=== PATIENT | female | born 1945 | race Two or more races ===

== ENCOUNTER 2021-06-23 10:07 | Inpatient (IN) | payer MEDICARE, OTHER ==
[~2021-06-23] VITALS: Ht 154.9 cm; Wt 64.9 kg
--- NOTE | 2021-06-23 10:30 | NUR ---
ROBERTA ULRICH [facility],BLOOD NOTED IN HER STOOL THIS MORNING. THE PATIENT IS ALERT AND ORIENTED X3 WITH EPISODES OF FORGETFULLNESS. DENIES PAIN. IN ROOM AIR AND DENIES SOB. RESPIRATION REGULAR AND UNLABORED. ATTACHED TO THE MONITOR. WARM BLANKET PROVIDED FOR COMFORT. WILL CONTINUE TO MONITOR THE PATIENT.
--- NOTE | 2021-06-23 11:20 | NUR ---
PT WAS BROUGHT TO CT DEPT VIA STRETCHER.
[2021-06-23] MEDS ORDERED: PANTOPRAZOLE 40 MG VIAL ONE ×2 (11:24→16:46)
[2021-06-23] MEDS ORDERED: ONDANSETRON HCL/PF 4 MG/2 ML VIAL ONE (11:24)
[2021-06-23] MEDS ORDERED: MORPHINE SULFATE INJ 2 MG/ML DISP.SYRIN ONE (11:25)
[2021-06-23] MEDS ORDERED: IV NS 0.9% 500 ML BAG IV ONE (11:30)
[2021-06-23] MEDS ORDERED: ONDANSETRON HCL/PF 4 MG/2 ML VIAL IVP ONE (11:30)
[2021-06-23] MEDS ORDERED: MORPHINE SULFATE INJ 2 MG/ML DISP.SYRIN IV ONE (11:30)
[2021-06-23] MEDS ORDERED: PANTOPRAZOLE 40 MG VIAL IV ONE (11:30)
[2021-06-23 11:36] LABS: ALANINE AMINOTRANSFERASE 16 U/L (12-78); ALBUMIN 2.3 g/dL (3.4-5.0); ALKALINE PHOSPHATASE 180 U/L (46-116); ASPARTATE AMINOTRANSFERASE 14 U/L (15-37); BILIRUBIN,DIRECT 0.1 mg/dL (0.0-0.2); BILIRUBIN,TOTAL 0.4 mg/dL (0.2-1.0); CALCIUM, SERUM 8.4 mg/dL (8.5-10.1); CARBON DIOXIDE 23 mmol/L (21-32); CHLORIDE 102 mmol/L (98-107); CREATININE 0.5 mg/dL (0.6-1.3); GLUCOSE 133 mg/dL (74-106); LIPASE 27 U/L (73-393); POTASSIUM 3.9 mmol/L (3.5-5.1); SODIUM SERUM 134 mmol/L (136-145); TOTAL PROTEIN, SERUM 7.5 g/dL (6.4-8.2); UREA NITROGEN, BLOOD 17 mg/dL (7-18)
--- NOTE | 2021-06-23 11:45 | NUR ---
IV CANNULA G22 INSERTED ON LEFT FA. IVF ATTACHED. LINE IS PATENT, NO SWELLING NOTED.
[2021-06-23 11:50] LABS: BASOPHILS % (AUTO) 0.3 % (0.0-2.0); EOSINOPHILS % (AUTO) 0.7 % (0.0-6.0); HEMATOCRIT 30 % (33-45); HEMOGLOBIN 8.9 g/dL (11.5-14.8); LYMPHOCYTES # (AUTO) 1.9 K/uL (0.8-4.8); LYMPHOCYTES % (AUTO) 13.5 % (20.0-44.0); MEAN CORPUSCULAR HGB CONC 30 g/dl (31.0-36.0); MEAN CORPUSCULAR VOLUME 69 fL (82-100); MONOCYTES # (AUTO) 1.1 K/uL (0.1-1.30); MONOCYTES % (AUTO) 7.8 % (2.0-12.0); NEUTROPHILS # (AUTO) 11.1 K/uL (1.8-8.9); NEUTROPHILS % (AUTO) 77.7 % (43.0-81.0); PLATELET COUNT (AUTO) 369 K/uL (150-450); RED BLOOD CELL COUNT(AUTO) 4.32 MIL/uL (4.0-5.2); WHITE BLOOD COUNT (AUTO) 14.2 K/uL (4.3-11.0)
[2021-06-23] MEDS ORDERED: PIPERACILLIN /TAZOBACTAM 3.375 G VIAL IV ONE (12:15)
[2021-06-23] MEDS ORDERED: VIT1CAPS44 PO (12:18)
[2021-06-23] MEDS ORDERED: MULT-439 PO (12:18)
[2021-06-23] MEDS ORDERED: LEVO25TA7 PO (12:18)
[2021-06-23] MEDS ORDERED: DIVA500T2 PO (12:18)
[2021-06-23] MEDS ORDERED: ASCO500C17 PO (12:18)
[2021-06-23] MEDS ORDERED: MIRT-121 PO (12:18)
[2021-06-23] MEDS ORDERED: DONE5TAB7 PO (12:18)
[2021-06-23] MEDS ORDERED: LEVE1000 PO (12:18)
[2021-06-23] MEDS ORDERED: CHOL200013 PO (12:18)
[2021-06-23] MEDS ORDERED: ASPI-1169 PO (12:18)
[2021-06-23] MEDS ORDERED: AZITHROMYCIN 500 MG in IV D5W 250 ML IV ONE (12:30)
[2021-06-23] MEDS ORDERED: CEFTAZIDIME 1 G in IV D5W 50 ML IV ONE (12:30)
[2021-06-23] MEDS ORDERED: PIPERACILLIN /TAZOBACTAM 3.375 G in IV D5W 50 ML IV ONE (12:30)
--- NOTE | 2021-06-23 13:13 | NUR ---
SPOKE WITH DR. SALAMANCA [facility]
--- NOTE | 2021-06-23 13:14 | NUR ---
[facility] CALLED CLINICAL TRIALS MANAGER PAGED.
--- NOTE | 2021-06-23 13:15 | NUR ---
MOVE SHEET SUBMITTED.
--- NOTE | 2021-06-23 13:29 | NUR ---
COVID SWAB DONE AND SENT TO LAB
[2021-06-23] MEDS ORDERED: hydrALAZINE HCL IV 20 MG VIAL IV PRN (14:00)
[2021-06-23] MEDS ORDERED: Z GUARD REMEDY 4 OZ OINT TP PRN (14:00)
[2021-06-23] MEDS ORDERED: MAG HYDROX/AL HYDROX/SIMETH 30 ML UDC PO PRN (14:00)
[2021-06-23] MEDS ORDERED: ONDANSETRON HCL/PF 4 MG/2 ML VIAL IVP PRN (14:00)
[2021-06-23] MEDS: IV NS 0.9% 1,000 ML IV SCH ×2 (14:21→16:50)
[2021-06-23 14:29] LABS: HEMOGLOBIN 8.7 g/dL (11.5-14.8)
[2021-06-23] MEDS ORDERED: DIVALPROEX SODIUM 500 MG TABLET.DR PO ONE (16:47)
[2021-06-23] MEDS: PANTOPRAZOLE 40 MG VIAL IV SCH (16:50)
[2021-06-23] MEDS: DIVALPROEX SODIUM 500 MG TABLET.DR PO SCH (16:53)
[2021-06-23] MEDS ORDERED: MORPHINE SULFATE INJ 4 MG/ML DISP.SYRIN ONE (16:59)
[2021-06-23] MEDS: MORPHINE SULFATE INJ 2 MG/ML DISP.SYRIN IV PRN (17:02)
--- NOTE | 2021-06-23 17:13 | NUR ---
SEEN BY DR MARES AT BEDSIDE.
--- NOTE | 2021-06-23 19:04 | NUR ---
GOT BED 321-2
--- NOTE | 2021-06-23 19:55 | NUR ---
REPORT GIVEN TO NOEMÍ JULY.
[2021-06-23 20:06] VITALS: BP 112/65
--- NOTE | 2021-06-23 20:09 | NUR ---
transferred under acls
[2021-06-23 20:10] LABS: FERRITIN 20 ng/mL (8-388)
[2021-06-23 20:49] LABS: IRON, SERUM 120 ug/dl (50-175); TOTAL IRON BINDING CAPACITY 250 ug/dl (250-450)
--- NOTE | 2021-06-23 21:00 | NUR ---
MS ORDNANCE TRUCK INSTALLATION MECHANIC NOTES RECEIVED PT FROM ED VIA [facility] AT 2006, NON-AMBULATORY. A/O X2-3 WITH DISORGANIZED THINKING. PT SAID SHE [place]/ DAUGHTER AND THAT SOMEONE PUT OIL ON THE FLOOR SO THAT HER DAUGHTER WILL SLIP. NO SOB OR NOTED. C/O PAIN 9/10 ON LEFT LEG. PT SAID SHE HAS A FRACTURE ON HER LLE AND THE DOCTOR SAID IT WILL BE PLACED IN A CAST. HAS LEFT FOREARM IV ACCESS #22G. NO S/S OF INFILTRATION NOTED. HAD BM X1, SOFT AND FROTHY. NO BLOOD NOTED. SAFETY PRECAUTIONS IN PLACE. ALL BELONGINGS ACCOUNTED FOR. WILL CONTINUE PLAN OF CARE.
[2021-06-23] MEDS: LEVETIRACETAM (250 MG) 250 MG TABLET PO SCH (21:35)
[2021-06-23] MEDS: DONEPEZIL 5 MG TABLET PO SCH (21:35)
[2021-06-23] MEDS: MIRTAZAPINE 15 MG TABLET PO SCH (21:35)
[2021-06-23] MEDS: ACETAMINOPHEN 325 MG TABLET PO PRN (21:45)
--- NOTE | 2021-06-23 22:42 | NUR ---
MS RN NOTES PT IV LINE WAS PULLED OUT WHILE TRANSFERRING TO BED. ATTEMPTED TO RE-INSERT X3, UNSUCCESSFUL. NOTIFIED CN.
--- NOTE | 2021-06-24 00:10 | NUR ---
MS RN NOTES RN SUP SUCCESSFUL IN RE-INSERTING PIV. ADVISED RN TO ORDER A MIDLINE SINCE PT IS A HARD-STICK.
[2021-06-24] MEDS: IV NS 0.9% 1,000 ML IV SCH ×2 (00:13→18:07)
[2021-06-24] MEDS: CEFEPIME 2 GM in IV D5W 100 ML IV SCH ×3 (00:23→23:58)
[2021-06-24] MEDS: MORPHINE SULFATE INJ 2 MG/ML DISP.SYRIN IV PRN ×2 (00:50→06:02)
--- NOTE | 2021-06-24 00:50 | NUR ---
MS RN NOTES PT C/O PAIN 9/10 ON HER LEFT LEG AND ABDOMEN. ADMINISTER PRN MORPHINE SO4. TOLERATED WELL.
[2021-06-24 01:57] LABS: HEMOGLOBIN 7.6 g/dL (11.5-14.8)
[2021-06-24 06:04] LABS: ALANINE AMINOTRANSFERASE 12 U/L (12-78); ALBUMIN 1.9 g/dL (3.4-5.0); ALKALINE PHOSPHATASE 139 U/L (46-116); ASPARTATE AMINOTRANSFERASE 10 U/L (15-37); BILIRUBIN,TOTAL 0.1 mg/dL (0.2-1.0); CALCIUM, SERUM 7.8 mg/dL (8.5-10.1); CARBON DIOXIDE 24 mmol/L (21-32); CHLORIDE 105 mmol/L (98-107); CREATININE 0.5 mg/dL (0.6-1.3); GLUCOSE 83 mg/dL (74-106); MAGNESIUM 1.8 mg/dL (1.8-2.4); PHOSPHORUS 3.1 mg/dL (2.5-4.9); POTASSIUM 3.9 mmol/L (3.5-5.1); SODIUM SERUM 137 mmol/L (136-145); TOTAL PROTEIN, SERUM 6.3 g/dL (6.4-8.2); UREA NITROGEN, BLOOD 16 mg/dL (7-18)
[2021-06-24 06:17] LABS: BASOPHILS # (AUTO) 0.1 K/uL (0.0-0.2); BASOPHILS % (AUTO) 0.5 % (0.0-2.0); EOSINOPHILS % (AUTO) 7.2 % (0.0-6.0); HEMATOCRIT 23 % (33-45); LYMPHOCYTES # (AUTO) 2.3 K/uL (0.8-4.8); LYMPHOCYTES % (AUTO) 15.7 % (20.0-44.0); MEAN CORPUSCULAR HGB CONC 30 g/dl (31.0-36.0); MEAN CORPUSCULAR VOLUME 69 fL (82-100); MONOCYTES # (AUTO) 1.1 K/uL (0.1-1.30); MONOCYTES % (AUTO) 7.5 % (2.0-12.0); NEUTROPHILS # (AUTO) 10.2 K/uL (1.8-8.9); NEUTROPHILS % (AUTO) 69.1 % (43.0-81.0); PLATELET COUNT (AUTO) 317 K/uL (150-450); RED BLOOD CELL COUNT(AUTO) 3.35 MIL/uL (4.0-5.2); WHITE BLOOD COUNT (AUTO) 14.7 K/uL (4.3-11.0)
--- NOTE | 2021-06-24 07:00 | NUR ---
MS RN CLOSING NOTES PT LYING IN BED ASLEEP. EASY TO AROUSE. A/O X2-3 WITH PERIODS OF CONFUSION. BREATHING EVEN AND NON-LABORED ON ROOM AIR. NOT IN APPARENT DISTRESS. ABDOMEN SOFT AND NON-TENDER. C/O NON-TOLERABLE BILATERAL FEET PAIN. PRN MORPHINE SO4 ADMINISTERED. HAS LEFT WRIST IV ACCESS #24G WITH NS RUNNING AT 75 ML/HR. PATENT, INTACT AND FLUSHING. MIDLINE INSERTION ORDERED PER RN MERCANTILE AGENT. BM X2, BLOOD-TINGED, LIQUID AND MUCOID STOOL NOTED. ALL NEEDS ATTENDED. KEPT DRY AND COMFORTABLE. SAFETY PRECAUTIONS IN PLACE: BED LOW AND LOCKED, SIDE RAILS UP X3, CALL LIGHT WITHIN REACH.
--- NOTE | 2021-06-24 07:15 | NUR ---
MS RN OPENING NOTES PATIENT IS SLEEPING IN BED, EASY TO AROUSE. BREATHING EVEN AND NON-LABORED ON ROOM AIR. NOT IN APPARENT DISTRESS. IV IS IN HER LEFT WRIST IV ACCESS #24G WITH NS RUNNING AT 75 ML/HR. PATENT, INTACT AND FLUSHING. SAFETY PRECAUTIONS IN PLACE: BED LOW AND LOCKED, SIDE RAILS UP X3, CALL LIGHT WITHIN REACH. WILL CONTINUE TO MONITOR FOR DONNA
[2021-06-24 07:50] LABS: HEMOGLOBIN 6.9 g/dL (11.5-14.8)
[2021-06-24 07:51] LABS: HEMOGLOBIN 6.9 g/dL (11.5-14.8)
[2021-06-24] MEDS: ASPIRIN 81 MG TAB.CHEW PO SCH (08:47)
[2021-06-24] MEDS: DIVALPROEX SODIUM 500 MG TABLET.DR PO SCH ×2 (08:49→17:38)
[2021-06-24] MEDS: ASCORBIC ACID 500 MG TABLET PO SCH (08:49)
[2021-06-24] MEDS: MULTIVIT W/MINERALS 1 TAB TABLET PO SCH (08:50)
[2021-06-24] MEDS: LEVOTHYROXINE SODIUM 25 MCG TABLET PO SCH (08:50)
[2021-06-24] MEDS: LEVETIRACETAM (250 MG) 250 MG TABLET PO SCH ×2 (08:50→22:48)
[2021-06-24] MEDS: CHOLECALCIFEROL 1,000 UNIT TABLET (VIT D3) PO SCH (08:50)
[2021-06-24] MEDS ORDERED: Medication Not On Formulary EA (Vit C/E/Zn/Coppr/Lutein/Zeaxan (Preservision Areds 2 Sof PO SCH (09:00)
[2021-06-24] MEDS: PANTOPRAZOLE 40 MG VIAL IV SCH ×2 (09:56→17:38)
--- NOTE | 2021-06-24 11:11 | NUR ---
RN MS NOTES PT IN BED, RESTING, NO COMPLAINT AT THIS TIME, MIDLINE INSERTED BY IV NURSE, TOLERATED WELL, SEEN AND EXAMINED BY DR. GUARDADO, PT REFUSED CT SCAN OF ABD AND PELVIS, MD AWARE.
--- NOTE | 2021-06-24 14:05 | NUR ---
RN MS NOTES CALLED BLOOD BANK TO FOLLOW UP PRBC, SPOKE WITH JUWAN, STATED THAT BLOOD IS NOT AVAILABLE YET AND PT IS TYPE O AND SHE REQUESTED IT STAT.
[2021-06-24] MEDS: SOD FERRIC GLUC 125 MG in IV NS 0.9% 100 ML IV SCH (14:17)
--- NOTE | 2021-06-24 19:30 | NUR ---
RN MS NOTES PT IN BED, RESTING, NO COMPLAINT OF PAIN, NOT IN DISTRESS, NO EPISODE OF BLOODY STOOL DURING THE SHIFT, VITALS TAKEN, BLOOD READY FOR TRANSFUSION AT THE BLOOD BANK, ENDORSED TO RISK ASSESSMENT ANALYST NURSE FOR CONTINUITY OF CARE.
[2021-06-24 20:00] VITALS: BP 74/39
[2021-06-24 21:05] VITALS: BP 82/43
[2021-06-24 21:07] VITALS: BP 82/43
--- NOTE | 2021-06-24 21:09 | NUR ---
MS/TELE/RN PRBC UNIT #1 STARTED. WILL MONITOR PER PROTOCOL.
[2021-06-24 21:25] VITALS: BP 73/31
[2021-06-24] MEDS ORDERED: IV NS 0.9% 500 ML IV ONE (22:30)
--- NOTE | 2021-06-24 22:30 | NUR ---
MS/TELE/RN BP 73/31 HR 80, OBTAINED ORDER FROM SEVERINO VITAL DNP, NS 500 MLS BOLUS.
[2021-06-24] MEDS: MIRTAZAPINE 15 MG TABLET PO SCH (22:49)
[2021-06-24] MEDS: DONEPEZIL 5 MG TABLET PO SCH (22:49)
[2021-06-24 23:00] VITALS: BP 82/43
[2021-06-24 23:02] VITALS: BP 94/53
[2021-06-25] VITALS (7 sets, daily range): BP systolic 80–111; BP diastolic 36–58
--- NOTE | 2021-06-25 01:36 | NUR ---
/JANIS/NOEMÍ BP 84/36, HR 78 AFTER NS 500 MLS BOLUS AND ONE UNIT PRBC, SEVERINO, LEANN, NOTIFIED, ORDER TO PLACE PATIENT ON TELEMETRY WAS RECEIVED. WILL CONTINUE TO MONITOR PATIENT. Addendum: 06/25/21 at 0143 by LATRELL MONTIEL RN PATIENT WAS ASYMPTOMATIC, AWAKE, ALERT AND ORIENTED.
[2021-06-25 02:27] LABS: HEMOGLOBIN 7.3 g/dL (11.5-14.8)
--- NOTE | 2021-06-25 06:02 | NUR ---
MS/TELE/RN AT ABOUT 0200 H&H 7.04/28, SENT A SECURE MESSAGING TO LEANN VITAL IF TO GIVE THE OTHER UNIT OF PRBC. NO RESPONSE YET OF THIS TIME, CALLED [facility], LEFT MESSAGE.
[2021-06-25] MEDS: IV NS 0.9% 1,000 ML IV SCH (06:05)
--- NOTE | 2021-06-25 06:31 | NUR ---
CHACHO/TELE/NOEMÍ VITAL DNP, CALLED BACK, PER SEVERINO, SINCE HG =7.3, LEAVE IT UP TO THE DAY SHIFT TO FIGURE OUT IF TO GIVE THE 2ND UNIT PRBC. WILL ENDORSE.
[2021-06-25 07:00] LABS: CALCIUM, SERUM 7.9 mg/dL (8.5-10.1); CARBON DIOXIDE 23 mmol/L (21-32); CHLORIDE 108 mmol/L (98-107); CREATININE 0.4 mg/dL (0.6-1.3); GLUCOSE 68 mg/dL (74-106); POTASSIUM 3.6 mmol/L (3.5-5.1); SODIUM SERUM 139 mmol/L (136-145); UREA NITROGEN, BLOOD 10 mg/dL (7-18)
[2021-06-25 07:01] LABS: HEMOGLOBIN 7.8 g/dL (11.5-14.8)
--- NOTE | 2021-06-25 07:01 | NUR ---
MS/TELE/RN PATIENT IS STILL SLEEPING AT THIS TIME, APPEAR COMFORTABLE, NO SIGNS OF DISTRESS NOTED, CALL LIGHT IN REACH, ALL NEEDS ATTENDED AT THIS TIME, WILL CONTINUE TO MONITOR.
[2021-06-25 07:17] LABS: BASOPHILS # (AUTO) 0.1 K/uL (0.0-0.2); BASOPHILS % (AUTO) 0.7 % (0.0-2.0); EOSINOPHILS % (AUTO) 16.4 % (0.0-6.0); HEMATOCRIT 25 % (33-45); HEMOGLOBIN 7.6 g/dL (11.5-14.8); LYMPHOCYTES # (AUTO) 1.9 K/uL (0.8-4.8); MEAN CORPUSCULAR HGB CONC 31 g/dl (31.0-36.0); MEAN CORPUSCULAR VOLUME 73 fL (82-100); MONOCYTES # (AUTO) 0.8 K/uL (0.1-1.30); NEUTROPHILS % (AUTO) 59.9 % (43.0-81.0); PLATELET COUNT (AUTO) 290 K/uL (150-450); RED BLOOD CELL COUNT(AUTO) 3.43 MIL/uL (4.0-5.2); WHITE BLOOD COUNT (AUTO) 11.6 K/uL (4.3-11.0)
[2021-06-25] MEDS: LEVOTHYROXINE SODIUM 25 MCG TABLET PO SCH (07:30)
--- NOTE | 2021-06-25 07:30 | NUR ---
DIGITAL HARDWARE DESIGN ENGINEER OPENING NOTES RECEIVED PATIENT ON BED, AWAKE AND A/O X2. ON ROOM AIR TOLERATING WELL. NO SOB NOTED. NOT IN DISTRESS. WITH COMPLAINTS OF PAIN IN THE ABDOMEN AT THE SCALE OF 8/10. COMFORT MEASURES PROVIDED. ON TELE MONITOR CURRENTLY READING SINUS RHYTHM AT 66BPM. WITH IV ACCESS AT THE RIGHT RIGHT UPPER ARM MIDLINE WITH IVF NS AT 75ML/HR INFUSING WELL. SAFETY MEASURES IN PLACED. CALL LIGHT WITHIN REACH. BED ON LOWEST LOCKED POSITION, SIDE RAILS UP X2. WILL CONTINUE TO MONITOR.
--- NOTE | 2021-06-25 07:30 | NUR ---
INSTALLATION SUPERINTENDENT OPENING NOTES RECEIVED PATIENT ON BED, AWAKE AND A/O X2. ON ROOM AIR TOLERATING WELL. NO SOB NOTED. NOT IN DISTRESS. WITH COMPLAINTS OF PAIN IN THE ABDOMEN AT THE SCALE OF 8/10. COMFORT MEASURES PROVIDED. ON TELE MONITOR CURRENTLY READING SINUS RHYTHM AT 66BPM. WITH IV ACCESS AT THE RIGHT RIGHT UPPER ARM MIDLINE WITH IVF NS AT 74. SAFETY MEASURES IN PLACED. CALL LIGHT WITHIN REACH. BED ON LOWEST LOCKED POSITION, SIDE RAILS UP X2. WILL CONTINUE TO MONITOR. Addendum: 06/25/21 at 1256 by LORENZA ZABALA RN ERROR
[2021-06-25] MEDS: CEFEPIME 2 GM in IV D5W 100 ML IV SCH ×2 (08:11→21:41)
[2021-06-25] MEDS: PANTOPRAZOLE 40 MG VIAL IV SCH ×2 (08:16→16:32)
[2021-06-25] MEDS: LEVETIRACETAM (250 MG) 250 MG TABLET PO SCH ×2 (08:24→21:42)
[2021-06-25] MEDS: MULTIVIT W/MINERALS 1 TAB TABLET PO SCH (08:24)
[2021-06-25] MEDS: ASCORBIC ACID 500 MG TABLET PO SCH (08:24)
[2021-06-25] MEDS: DIVALPROEX SODIUM 500 MG TABLET.DR PO SCH ×2 (08:24→16:32)
[2021-06-25] MEDS: ASPIRIN 81 MG TAB.CHEW PO SCH (08:24)
[2021-06-25] MEDS: CHOLECALCIFEROL 1,000 UNIT TABLET (VIT D3) PO SCH (08:24)
--- NOTE | 2021-06-25 08:30 | NUR ---
RN NOTE PATIENT IS COMPLAINING OF PAIN IN THE ABDOMEN AT THE SCALE OF 9/10 AND IS ASKING FOR PAIN MEDICATION THAT IS MORPHINE BUT PATIENT HAS LOW BP AT 80/50. WILL KEEP MONITORING BP.
[2021-06-25 09:05] LABS: IRON, SERUM 118 ug/dl (50-175)
[2021-06-25 09:51] LABS: TOTAL IRON BINDING CAPACITY 190 ug/dl (250-450)
[2021-06-25] MEDS ORDERED: IV NS 0.9% 1,000 ML IV ONE ×2 (10:30)
--- NOTE | 2021-06-25 10:30 | NUR ---
RN NOTE SPOKE WITH DR. GUARDADO AND REPORTED PT IS HAVING LOW BP AND IS ON IVF NS AT 75ML/HR. DR. GUARDADO ORDERED NS 1L BOLUS AND RECHECK PATIENT'S BP.
[2021-06-25] MEDS ORDERED: MIDODRINE HCL (5MG) 5 MG TABLET PO PRN (12:00)
[2021-06-25 12:04] LABS: FERRITIN 206 ng/mL (8-388)
[2021-06-25] MEDS: ALBUMIN 25% 25 GM in PREMIX 1 EA IV SCH (12:25)
[2021-06-25] MEDS: IV NS 0.9% 1,000 ML IV PRN (12:32)
[2021-06-25 16:19] LABS: HEMOGLOBIN 7.7 g/dL (11.5-14.8)
[2021-06-25] MEDS ORDERED: PEG 3350/NA SULF,BICARB,CL/KCL 4,000 ML BOTTLE PO ONE (18:00)
[2021-06-25] MEDS: SOD FERRIC GLUC 125 MG in IV NS 0.9% 100 ML IV SCH (18:04)
--- NOTE | 2021-06-25 18:22 | NUR ---
CLAIMS SPECIALIST CLOSING NOTES PATIENT SITTING ON BED, AWAKE AND A/O X4. ON ROOM AIR TOLERATING WELL. NO SOB NOTED. NOT IN DISTRESS. WITH COMPLAINTS OF PAIN AT THE LEFT KNEE AT THE SCALE OF 5/10. COMFORT MEASURES PROVIDED. ON TELE MONITOR CURRENTLY READING SINUS RHYTHM AT 75BPM. WITH IV ACCESS AT THE RIGHT HAND G24 AND AT THE RIGHT FOREARM G20, BOTH SALINE LOCKED, PATENT AND INTACT. SAFETY MEASURES IN PLACED. CALL LIGHT WITHIN REACH. BED ON LOWEST LOCKED POSITION, SIDE RAILS UP X2. WILL ENDORSE TO NEXT SHIFT FOR DONNA.
--- NOTE | 2021-06-25 18:22 | NUR ---
RN NOTE PROVIDED GOLYTELY SOLUTION TO THE PATIENT PREPARATION FOR COLONOSCOPY TOMORROW. CONSENT HAS NOT BEEN SIGNED YET FOR PER PATIENT SHE NEEDS TIME TO THINK ABOUT THE PROCEDURE.
--- NOTE | 2021-06-25 20:00 | NUR ---
SLAT BASKET TOP MAKER OPENING NOTE PATIENT AWAKE IN BED, ALERT/ORIENTED X 2 WITH PERIODS OF CONFUSION. PT STABLE ON RA, NO S/S OF DISTRESS OR SOB NOTED, BREATHING EVEN AND UNLABORED. PATIENT ON EXTERNAL BLOOD TESTER FOWL READING SINUS RHYTHM, HR: 77. BRIANNA MIDLINE INTACT AND INFUSING NS @ 100 ML/HR. ENCOURAGED PATIENT TO DRINK GOLYTELY FOR COLONOSCOPY TOMORROW, PATIENT TO BE NPO AFTER MIDNIGHT. SAFETY MEASURES IN PLACE: CALL LIGHT WITHIN REACH, SIDE RAILS UP X 3, BED LOCKED IN LOWEST POSITION, HOB ELEVATED, BED ALARM ON. WILL CONTINUE PLAN OF CARE
[2021-06-25] MEDS: DONEPEZIL 5 MG TABLET PO SCH (21:42)
[2021-06-25] MEDS: MIRTAZAPINE 15 MG TABLET PO SCH (21:42)
--- NOTE | 2021-06-25 22:30 | NUR ---
BOAT DESIGNER NOTE PATIENT'S HBG 7.0, HCT 22. PER DR. GUARDADO'S NOTES TRANSFUSE IF HBG LESS THAN 7. NO PRBC'S GIVEN AT THIS TIME PER ORDER
--- NOTE | 2021-06-25 23:23 | NUR ---
LANGUAGE TEACHER NOTE PATIENT REFUSING TO SIGN CONSENT FORMS FOR COLONOSCOPY TOMORROW. EXPLAINED RISKS AND BENEFITS TO PATIENT, BUT PATIENT STATED SHE IS SCARED AND DOESN'T WANT TO DO IT. PATIENT ALSO HASN'T DRANK THE GOLYTELY, ENCOURAGED HER TO DRINK BUT PATIENT STATED IT TASTES NASTY AND DOESN'T WANT TO DRINK IT.
[2021-06-26] VITALS (12 sets, daily range): BP systolic 98–117; BP diastolic 54–60
[2021-06-26] MEDS: ALBUMIN 25% 25 GM in PREMIX 1 EA IV SCH (00:17)
[2021-06-26] MEDS: IV NS 0.9% 1,000 ML IV PRN ×2 (00:17→22:44)
[2021-06-26 06:35] LABS: BASOPHILS # (AUTO) 0.1 K/uL (0.0-0.2); BASOPHILS % (AUTO) 0.9 % (0.0-2.0); EOSINOPHILS % (AUTO) 23.1 % (0.0-6.0); HEMATOCRIT 23 % (33-45); HEMOGLOBIN 7.1 g/dL (11.5-14.8); LYMPHOCYTES # (AUTO) 1.5 K/uL (0.8-4.8); LYMPHOCYTES % (AUTO) 15.4 % (20.0-44.0); MEAN CORPUSCULAR HGB CONC 31 g/dl (31.0-36.0); MEAN CORPUSCULAR VOLUME 71 fL (82-100); MONOCYTES # (AUTO) 0.8 K/uL (0.1-1.30); MONOCYTES % (AUTO) 8.1 % (2.0-12.0); NEUTROPHILS # (AUTO) 5.2 K/uL (1.8-8.9); NEUTROPHILS % (AUTO) 52.5 % (43.0-81.0); PLATELET COUNT (AUTO) 302 K/uL (150-450); RED BLOOD CELL COUNT(AUTO) 3.15 MIL/uL (4.0-5.2); WHITE BLOOD COUNT (AUTO) 9.9 K/uL (4.3-11.0)
[2021-06-26 06:49] LABS: CARBON DIOXIDE 24 mmol/L (21-32); CHLORIDE 107 mmol/L (98-107); CREATININE 0.4 mg/dL (0.6-1.3); GLUCOSE 73 mg/dL (74-106); MAGNESIUM 1.5 mg/dL (1.8-2.4); PHOSPHORUS 2.9 mg/dL (2.5-4.9); UREA NITROGEN, BLOOD 5 mg/dL (7-18)
--- NOTE | 2021-06-26 06:49 | NUR ---
JUNIOR LINUX ADMINISTRATOR CLOSING NOTE PATIENT SLEEPING IN BED, ALERT/ORIENTED X 2 WITH PERIODS OF CONFUSION. PT STABLE ON RA, NO S/S OF DISTRESS OR SOB NOTED, BREATHING EVEN AND UNLABORED. PATIENT ON EXTERNAL BEER COIL CLEANER READING SINUS RHYTHM, HR: 88. BRIANNA MIDLINE INTACT AND INFUSING NS @ 100 ML/HR. NO SIGNIFICANT CHANGES THROUGHOUT SHIFT, MEDICATIONS GIVEN ORDERED, PT NEEDS MET THROUGHOUT SHIFT. PATIENT REFUSED TO SIGN CONSENT FORMS FOR COLONOSCOPY AND REFUSED TO DRINK GOLYTELY. SAFETY MEASURES IN PLACE: CALL LIGHT WITHIN REACH, SIDE RAILS UP X 3, BED LOCKED IN LOWEST POSITION, HOB ELEVATED, BED ALARM ON. WILL ENDORSE TO DAY SHIFT NURSE FOR CONTINUITY OF CARE
[2021-06-26 06:54] LABS: SODIUM SERUM 139 mmol/L (136-145)
[2021-06-26 06:57] LABS: POTASSIUM 2.8 mmol/L (3.5-5.1)
--- NOTE | 2021-06-26 07:00 | NUR ---
BEATER WORKER HELPER NOTE LAB CALLED WITH CRITICAL LAB FOR POTASSIUM 2.8. WILL ENDORSE TO DAY SHIFT NURSE
--- NOTE | 2021-06-26 07:22 | NUR ---
FIBERGLASS PIPE COVERING SUPERVISOR OPENING NOTE RECEIVED PATIENT ON BED, AWAKE AND A/O X2. ON ROOM AIR TOLERATING WELL. NO SOB NOTED. ON TELE MONITOR CURRENTLY READING SINUS RHYTHM AT 60'S BPM. WITH IV ACCESS AT THE RIGHT RIGHT UPPER ARM MIDLINE WITH IVF NS AT 100 ML/HR INFUSING WELL. SAFETY MEASURES IN PLACED. CALL LIGHT WITHIN REACH. BED ON LOWEST LOCKED POSITION, SIDE RAILS UP X2. WILL CONTINUE TO MONITOR.
[2021-06-26 08:10] LABS: HEMOGLOBIN 7.1 g/dL (11.5-14.8)
--- NOTE | 2021-06-26 08:30 | NUR ---
CRUSHER SUPERVISOR NOTE PATIENT REFUSED TAKING THE GOLYTELY FOR BOWEL PREP. KEPT PATIENT ON NPO FOR POSSIBLE PROCEDURE TODAY. PATIENT AGREED FOR THE PROCEDURE BUT NOT THE BOWEL PREP. MD AWARE. COMFORT MEASURES PROVIDED.
[2021-06-26] MEDS: LEVOTHYROXINE SODIUM 25 MCG TABLET PO SCH (08:49)
[2021-06-26] MEDS: ASPIRIN 81 MG TAB.CHEW PO SCH ×2 (08:49→09:00)
[2021-06-26] MEDS: MULTIVIT W/MINERALS 1 TAB TABLET PO SCH (08:49)
[2021-06-26] MEDS: PANTOPRAZOLE 40 MG VIAL IV SCH ×2 (08:49→17:34)
[2021-06-26] MEDS: ASCORBIC ACID 500 MG TABLET PO SCH (08:50)
[2021-06-26] MEDS: CHOLECALCIFEROL 1,000 UNIT TABLET (VIT D3) PO SCH (08:50)
[2021-06-26] MEDS: DIVALPROEX SODIUM 500 MG TABLET.DR PO SCH ×2 (08:50→17:33)
[2021-06-26] MEDS: LEVETIRACETAM (250 MG) 250 MG TABLET PO SCH ×2 (08:50→21:04)
[2021-06-26] MEDS: POTASSIUM CL. PREMIX PERIPHER. 50 ML IV SCH ×4 (09:22→12:38)
[2021-06-26] MEDS: MORPHINE SULFATE INJ 2 MG/ML DISP.SYRIN IV PRN ×2 (09:34→21:14)
--- NOTE | 2021-06-26 10:50 | NUR ---
FISH CLEANER MACHINE TENDER NOTE PATIENT WITH ORDER FROM DR. SHEPPARD TO TRANSFUSE 1 UNIT PRBC. STARTED BLOOD TRANSFUSION ORDERED. TOLERATING WELL. IN STABLE CONDITION.
--- NOTE | 2021-06-26 11:35 | NUR ---
LEAD PROJECT MANAGER NOTE SEEN BY DR. SHEPPARD.
[2021-06-26] MEDS: CEFEPIME 2 GM in IV D5W 100 ML IV SCH ×2 (11:38→21:04)
[2021-06-26] MEDS ORDERED: MAGNESIUM OXIDE 400 MG TABLET PO ONE (13:30)
--- NOTE | 2021-06-26 14:00 | NUR ---
CHANNELER INSOLE NOTE COMPLETED BLOOD TRANSFUSION, IN STABLE CONDITION. NO ADVERSE REACTION NOTED. BLOOD TRANSFUSION, TOLERATED WELL. COMFORT MEASURES PROVIDED.
[2021-06-26 14:44] LABS: HEMOGLOBIN 8.7 g/dL (11.5-14.8)
[2021-06-26] MEDS: SOD FERRIC GLUC 125 MG in IV NS 0.9% 100 ML IV SCH (18:08)
--- NOTE | 2021-06-26 19:00 | NUR ---
INSURANCE SALES PRODUCER CLOSING NOTE PATIENT ON BED, AWAKE AND A/O X2. ON ROOM AIR TOLERATING WELL. NO SOB NOTED. ON TELE MONITOR CURRENTLY READING SINUS RHYTHM AT 70'S BPM. WITH IV ACCESS AT THE RIGHT RIGHT UPPER ARM MIDLINE ON SALINE LOCK WITH LEFT FOREARM G 22 ON SALINE LOCK, BOTH PATENT AND INTACT. SAFETY MEASURES IN PLACED. CALL LIGHT WITHIN REACH. BED ON LOWEST LOCKED POSITION, SIDE RAILS UP X2. WILL ENDORSE PATIENT FOR CONTINUITY OF CARE.
--- NOTE | 2021-06-26 19:29 | NUR ---
RN OPENING NOTES RECEIVED PT LAYING IN BED, AWAKE. AOx3, ABLE TO MAKE NEEDS KNOWN. ON RA AND TOLERATING WELL. NO SOB NOTED. NO S/SX OF RESPIRATORY DISTRESS NOTED. IV ACCESS IN BRIANNA MIDLINE AND LFA #22G. IV IS INTACT, PATENT, AND FLUSHING WELL. SAFETY PRECAUTIONS IN PLACE: BED IN LOWEST, LOCKED POSITION, SIDERAILS UPx2, AND BRAKES ON. TABLE AND CALL LIGHT WITHIN REACH. WILL CONTINUE TO MONITOR.
[2021-06-26] MEDS ORDERED: IPRATROPIUM NEB FS 0.5 MG/2.5 ML AMPUL.NEB NEB PRN (20:00)
[2021-06-26] MEDS: DONEPEZIL 5 MG TABLET PO SCH (21:04)
[2021-06-26] MEDS: MIRTAZAPINE 15 MG TABLET PO SCH (21:04)
--- NOTE | 2021-06-26 21:14 | NUR ---
RN NOTES ADMINISTERED MORPHINE FOR PAIN. VS WNL. WILL CONTINUE TO MONITOR.
[2021-06-26 21:50] LABS: BAND % (MANUAL) 1 % (0.0-5.0); EOSINOPHILS % (MANUAL) 20 % (0-4); LYMPHOCYTES % (MANUAL) 13 % (16-48); MONOCYTES % (MANUAL) 7 % (0-11.0); NEUTROPHILS % (MANUAL) 59 (42-76)
[2021-06-26 22:40] LABS: HEMOGLOBIN 8.8 g/dL (11.5-14.8)
[2021-06-27] VITALS: BP 115/54
[2021-06-27 04:00] VITALS: BP 106/58
--- NOTE | 2021-06-27 06:54 | NUR ---
RN CLOSING NOTES PT LYING IN BED, ASLEEP, AWAKENS TO VERBAL STIMULI. AOx3, ABLE TO MAKE NEEDS KNOWN. ON RA AND TOLERATING WELL. NO SOB NOTED. NO S/SX OF RESPIRATORY DISTRESS NOTED. IV ACCESS IN BRIANNA MIDLINE AND LFA #22G. IV IS INTACT, PATENT, AND FLUSHING WELL. ALL ORDERS CARRIED OUT. ALL NEEDS MET. PT KEPT CLEAN AND DRY. TREATED PAIN ONCE DURING SHIFT. SAFETY PRECAUTIONS IN PLACE: BED IN LOWEST, LOCKED POSITION, SIDERAILS UPx2, AND BRAKES ON. TABLE AND CALL LIGHT WITHIN REACH. WILL ENDORSE TO ONCOMING SHIFT FOR DONNA.
[2021-06-27 07:07] LABS: AFP, TUMOR MARKER 2.6 ng/mL (0.0-9.2); CARBOHYDRATE AG 19-9 61 U/mL (0-35)
[2021-06-27] MEDS: LEVOTHYROXINE SODIUM 25 MCG TABLET PO SCH (07:19)
--- NOTE | 2021-06-27 07:34 | NUR ---
PLANT CHANGER OPENING NOTES PATIENT IN BED ASLEEP,EASILY TO AWAKE WITH STIMULI. ALERT ORIENTED X4, ABLE TO VERBALIZED NEEDS. NO SOB OR CARDIAC DISTRESS NOTED, ON ROOM AIR AND TOLERATING WELL. IV ACCESS ON BRIANNA MIDLINE NS @100ML/HR INFUSING WELL. ON BROOCH MAKER NOVELTY WITH CURRENT READING OF SINUS RHYTHM @72 BPM AND LEFT FOREARM G#22 SALINE LOCKED. SAFETY PRECAUTIONS MAINTAINED: BED IN LOWEST POSITION AND LOCKED, SIDERAILS UP AND CALL LIGHT IN EASY REACH FOR HELP/ASSISTANCE.
[2021-06-27 08:00] VITALS: BP 112/54
[2021-06-27 08:06] LABS: IMMUNOGLOBULIN A, SERUM 381 mg/dL (64-422); IMMUNOGLOBULIN G, SERUM 1170 mg/dL (586-1602); IMMUNOGLOBULIN M, SERUM 61 mg/dL (26-217)
[2021-06-27] MEDS: ASPIRIN 81 MG TAB.CHEW PO SCH ×2 (09:00→09:41)
[2021-06-27 09:08] LABS: BASOPHILS # (AUTO) 0.1 K/uL (0.0-0.2); BASOPHILS % (AUTO) 0.7 % (0.0-2.0); EOSINOPHILS % (AUTO) 23.4 % (0.0-6.0); HEMATOCRIT 27 % (33-45); HEMOGLOBIN 8.5 g/dL (11.5-14.8); LYMPHOCYTES # (AUTO) 1.9 K/uL (0.8-4.8); LYMPHOCYTES % (AUTO) 21.2 % (20.0-44.0); MEAN CORPUSCULAR HGB CONC 31 g/dl (31.0-36.0); MEAN CORPUSCULAR VOLUME 75 fL (82-100); MONOCYTES % (AUTO) 10.7 % (2.0-12.0); PLATELET COUNT (AUTO) 322 K/uL (150-450)
[2021-06-27 09:37] LABS: ALANINE AMINOTRANSFERASE 10 U/L (12-78); ALBUMIN 2.2 g/dL (3.4-5.0); ALKALINE PHOSPHATASE 172 U/L (46-116); ASPARTATE AMINOTRANSFERASE 22 U/L (15-37); BILIRUBIN,TOTAL 0.3 mg/dL (0.2-1.0); CALCIUM, SERUM 8.1 mg/dL (8.5-10.1); CARBON DIOXIDE 28 mmol/L (21-32); CHLORIDE 104 mmol/L (98-107); CREATININE 0.4 mg/dL (0.6-1.3); GLUCOSE 78 mg/dL (74-106); POTASSIUM 3.1 mmol/L (3.5-5.1); SODIUM SERUM 137 mmol/L (136-145); TOTAL PROTEIN, SERUM 6.2 g/dL (6.4-8.2); UREA NITROGEN, BLOOD 3 mg/dL (7-18)
[2021-06-27] MEDS: MULTIVIT W/MINERALS 1 TAB TABLET PO SCH (09:40)
[2021-06-27] MEDS: DIVALPROEX SODIUM 500 MG TABLET.DR PO SCH ×2 (09:40→17:02)
[2021-06-27] MEDS: ASCORBIC ACID 500 MG TABLET PO SCH (09:40)
[2021-06-27] MEDS: PANTOPRAZOLE 40 MG VIAL IV SCH ×2 (09:40→17:02)
[2021-06-27] MEDS: LEVETIRACETAM (250 MG) 250 MG TABLET PO SCH ×2 (09:41→21:26)
[2021-06-27] MEDS: CHOLECALCIFEROL 1,000 UNIT TABLET (VIT D3) PO SCH (09:41)
[2021-06-27] MEDS: POTASSIUM CL. PREMIX PERIPHER. 50 ML IV SCH ×4 (09:42→12:51)
[2021-06-27] MEDS: CEFEPIME 2 GM in IV D5W 100 ML IV SCH ×2 (09:43→21:25)
[2021-06-27] MEDS ORDERED: MAGNESIUM OXIDE 400 MG TABLET PO ONE (10:00)
--- NOTE | 2021-06-27 10:16 | NUR ---
WOUND CARE CONSULT; PT PRESENTS WITH SKIN CONDITION TO LEFT LOWER LEG AND FEET WITH DRY SCABS WELL SOME SCRATCH CAREY TO ABDOMEN, ARMS AND LOWER LEGS, PRESENT ON ADMISSION. PT NOT NOTED TO BE SCRATCHING AT THIS TIME. DEFER TO PMD FOR SKIN CONDITION. PT IS INCONTINENT. RECOMMENDATIONS MADE FOR SKIN PROTECTION. DISCUSSED WITH NURSING STAFF. PT PLACED ON ISOFLEX LOW AIRLOSS BED. MD IN AGREEMENT WITH PLAN OF CARE.
--- NOTE | 2021-06-27 10:30 | NUR ---
RN NOTES: REVENUE TAX SPECIALIST CAME TO BRIM FLEXER PT FOR CT CHEST WITHOUT CONTRAST, PATIENT REFUSED. PT ALSO REFUSED COLONOSCOPY. DESPITE DR FIERRO EXPLAINED RISK AND BENEFITS OF BOTH PROCEDURES.
[2021-06-27 12:00] VITALS: BP 116/62
[2021-06-27 12:07] LABS: BAND % (MANUAL) 2 % (0.0-5.0); EOSINOPHILS % (MANUAL) 30 % (0-4); LYMPHOCYTES % (MANUAL) 26 % (16-48); MONOCYTES % (MANUAL) 4 % (0-11.0); NEUTROPHILS % (MANUAL) 38 (42-76)
--- NOTE | 2021-06-27 16:00 | NUR ---
RN NOTES: PATIENT PULLED OUT MIDLINE ACCESS, NOTED WITH BLEEDING, COVERED WITH DRY DRESSING AND SECURED WITH TAPE.
[2021-06-27] MEDS: SOD FERRIC GLUC 125 MG in IV NS 0.9% 100 ML IV SCH (17:44)
[2021-06-27 17:58] VITALS: BP 121/80
--- NOTE | 2021-06-27 18:31 | NUR ---
RN NOTES PT WHEELED TO CT ROOM FOR CT CHEST W/O CONTRAST.
[2021-06-27] MEDS: MORPHINE SULFATE INJ 2 MG/ML DISP.SYRIN IV PRN (18:50)
--- NOTE | 2021-06-27 18:59 | NUR ---
INTERIOR PANELER CLOSING NOTES PATIENT IN BED AWAKE AND WATCHING TELEVISION, ALERT ORIENTED X4, ABLE TO VERBALIZED NEEDS. NO SOB OR CARDIAC DISTRESS NOTED, ON ROOM AIR AND TOLERATING WELL. LEFT FOREARM G#22 NS @100ML/HR INFUSING WELL. ON CLOTH DOUBLING MACHINE OPERATOR WITH CURRENT READING OF SINUS RHYTHM @81 BPM. SAFETY PRECAUTIONS MAINTAINED: BED IN LOWEST POSITION AND LOCKED, SIDERAILS UP AND CALL LIGHT IN EASY REACH FOR HELP/ASSISTANCE. ENDORSED TO MILL AND COAL TRANSPORT OPERATOR NURSE FOR CONTINUITY OF CARE.
[2021-06-27 20:00] VITALS: BP 113/60
--- NOTE | 2021-06-27 20:08 | NUR ---
ENTRY LEVEL BUYER OPENING NOTES: RECEIVED PATIENT SLEEP IN BED , AROUSABLE TO VERBAL STIMULI, BED IN LOW POSITION, CALL LIGHTS WITHIN REACH, NO COMPLAIN OF PAIN AND DISCOMFORT AT THIS TIME, ON ROOM AIR SATURATING WELL, ON TELE MONITORING SR-71, WITH IV LINE AT [id number] WITH ONGOING NSS@100ML PER HOUR INFUSING WELL, PATIENT KEPT CLEAN AND DRY ALL NEEDS MET WILL CONTINUE TO MONITOR.
[2021-06-27] MEDS: MIRTAZAPINE 15 MG TABLET PO SCH (21:25)
[2021-06-27] MEDS: DONEPEZIL 5 MG TABLET PO SCH (21:26)
[2021-06-27] MEDS: IV NS 0.9% 1,000 ML IV PRN (23:01)
[2021-06-28] VITALS: BP 123/80
[2021-06-28 00:04] VITALS: BP 123/80
[2021-06-28] MEDS: MORPHINE SULFATE INJ 2 MG/ML DISP.SYRIN IV PRN ×4 (00:39→21:54)
[2021-06-28 04:00] VITALS: BP 81/49
--- NOTE | 2021-06-28 06:00 | NUR ---
RN NOTES: PATIENT HAS A SCHEDULE CT NEEDLE BIOPSY OF LIVER EXPLAIN TO PATIENT THE PROCEDURE AND OFFERED TO SIGN THE CONSENT 2X LAST NIGHT AND AT 0600 PATIENT KEPT REFUSING,
[2021-06-28 06:38] LABS: BASOPHILS # (AUTO) 0.1 K/uL (0.0-0.2); BASOPHILS % (AUTO) 0.8 % (0.0-2.0); HEMATOCRIT 25 % (33-45); LYMPHOCYTES # (AUTO) 1.7 K/uL (0.8-4.8); LYMPHOCYTES % (AUTO) 23.6 % (20.0-44.0); MEAN CORPUSCULAR HGB CONC 33 g/dl (31.0-36.0); MEAN CORPUSCULAR VOLUME 73 fL (82-100); MONOCYTES # (AUTO) 0.7 K/uL (0.1-1.30); MONOCYTES % (AUTO) 9.4 % (2.0-12.0); NEUTROPHILS # (AUTO) 2.8 K/uL (1.8-8.9); NEUTROPHILS % (AUTO) 38.3 % (43.0-81.0); PLATELET COUNT (AUTO) 328 K/uL (150-450); RED BLOOD CELL COUNT(AUTO) 3.38 MIL/uL (4.0-5.2); WHITE BLOOD COUNT (AUTO) 7.3 K/uL (4.3-11.0)
--- NOTE | 2021-06-28 06:56 | NUR ---
HAM CURER CLOSING NOTES: PATIENT SLEEP IN BED COMFORTABLY, BED IN LOW POSITION, CALL LIGHTS WITHIN REACH, NO COMPLAIN OF PAIN AND DISCOMFORT AT THIS TIME ON ROOM AIR SATURATING WELL, PATIENT ON NPO FOR SCHEDULE CT LIVER NEEDLE BIOPSY, PATIENT KEPT ON REFUSING TO SIGN CONSENT FORM 2ND TIME TO OFFER, WITH IV LINE AT BRIANNA ML WITH ONGOING NSS@100ML /HR INFUSING WELL, ON TELE MONITORING, SR-74, ON ROOM AIR SATURATING WELL, PATIENT KEPT CLEAN AND DRY ALL NEEDS MET ENDORSE TO INCOMING SHIFT,
[2021-06-28 07:04] LABS: ALANINE AMINOTRANSFERASE 11 U/L (12-78); ALBUMIN 1.9 g/dL (3.4-5.0); ALKALINE PHOSPHATASE 148 U/L (46-116); ASPARTATE AMINOTRANSFERASE 16 U/L (15-37); BILIRUBIN,TOTAL 0.2 mg/dL (0.2-1.0); CALCIUM, SERUM 7.9 mg/dL (8.5-10.1); CARBON DIOXIDE 30 mmol/L (21-32); CHLORIDE 108 mmol/L (98-107); CREATININE 0.3 mg/dL (0.6-1.3); GLUCOSE 76 mg/dL (74-106); MAGNESIUM 1.5 mg/dL (1.8-2.4); POTASSIUM 3.2 mmol/L (3.5-5.1); SODIUM SERUM 142 mmol/L (136-145); TOTAL PROTEIN, SERUM 5.8 g/dL (6.4-8.2); UREA NITROGEN, BLOOD 3 mg/dL (7-18)
[2021-06-28 07:07] LABS: *SPE A/G RATIO 0.8 (0.7-1.7); *SPE ALPHA-1-GLOBULIN 0.3 g/dL (0.0-0.4); *SPE ALPHA-2-GLOBULIN 0.7 g/dL (0.4-1.0); *SPE M-SPIKE Not Observed g/dL (Not Observed)
[2021-06-28 07:20] LABS: EOSINOPHILS % (AUTO) 27.9 % (0.0-6.0)
--- NOTE | 2021-06-28 07:30 | NUR ---
VALUE STREAM MANAGER OPENING NOTES PATIENT IS AWAKE, ALERT AND ORIENTED X 4. LYING DOWN ON THE BED COMFORTABLY. NO COMPLAIN OF PAIN AND DISCOMFORT AT THIS TIME ON ROOM AIR SATURATING WELL. SAFETY MEASURES INITIATED: BED IN LOW POSITION, CALL LIGHTS WITHIN REACH. IV LINE AT BRIANNA ML WITH ONGOING NS @100ML /HR INFUSING WELL, ON TELE MONITORING AND ON ROOM AIR SATURATING WELL. WILL CONTINUE TO MONITOR FOR DONNA.
[2021-06-28] MEDS: LEVOTHYROXINE SODIUM 25 MCG TABLET PO SCH (07:50)
[2021-06-28 08:00] VITALS: BP 104/57
--- NOTE | 2021-06-28 08:28 | NUR ---
MS RN NOTES PATIENT REFUSED THE CT NEEDLE BIOPSY PROCEDURE, AND DR. PERES WAS INFORMED.
[2021-06-28] MEDS: ASPIRIN 81 MG TAB.CHEW PO SCH (08:31)
[2021-06-28] MEDS: DIVALPROEX SODIUM 500 MG TABLET.DR PO SCH ×2 (08:51→16:43)
[2021-06-28] MEDS: LEVETIRACETAM (250 MG) 250 MG TABLET PO SCH ×2 (08:51→20:10)
[2021-06-28] MEDS: PANTOPRAZOLE 40 MG VIAL IV SCH ×2 (08:51→16:43)
[2021-06-28] MEDS: CHOLECALCIFEROL 1,000 UNIT TABLET (VIT D3) PO SCH (08:51)
[2021-06-28] MEDS: CEFEPIME 2 GM in IV D5W 100 ML IV SCH ×2 (08:52→20:08)
[2021-06-28] MEDS: ASCORBIC ACID 500 MG TABLET PO SCH (08:52)
[2021-06-28] MEDS: MULTIVIT W/MINERALS 1 TAB TABLET PO SCH (08:52)
[2021-06-28] MEDS: IV NS 0.9% 1,000 ML IV PRN (09:09)
[2021-06-28] MEDS: Magnesium 1GM/D5W 100ML PREMIX 100 ML IV SCH ×2 (11:07→13:37)
--- NOTE | 2021-06-28 11:28 | NUR ---
MS RN NOTES PATIENT WENT FOR MRI WITH/WITHOUT CONTRAST @ 1120.
[2021-06-28 11:35] LABS: BAND % (MANUAL) 2 % (0.0-5.0); EOSINOPHILS % (MANUAL) 30 % (0-4); LYMPHOCYTES % (MANUAL) 18 % (16-48); MONOCYTES % (MANUAL) 13 % (0-11.0); NEUTROPHILS % (MANUAL) 37 (42-76)
[2021-06-28] MEDS ORDERED: GADOTERATE MEGLUMINE 10 MMOL/20 ML VIAL IV ONE (12:30)
[2021-06-28] MEDS: POTASSIUM CL. PREMIX PERIPHER. 50 ML IV SCH ×4 (14:40→18:59)
[2021-06-28] MEDS ORDERED: HYDROCORTISONE 1% CREAM 28.35 GM TUBE TP PRN (15:30)
[2021-06-28 16:10] VITALS: BP 110/53
[2021-06-28] MEDS: HYDROCORTISONE OINT 1% 28.35 GM TUBE TP PRN ×2 (17:52→20:21)
--- NOTE | 2021-06-28 18:21 | NUR ---
SOFTWARE CONFIGURATION ANALYST CLOSING NOTES PATIENT IS AWAKE IN BED COMFORTABLY. NO COMPLAIN OF PAIN AND DISCOMFORT AT THIS TIME. PATIENT IN ROOM AIR. SAFETY MEASURES INITIATED: BED IN LOW POSITION, CALL LIGHTS WITHIN REACH. PATIENT IS IN CLEAR LIQUID DIET. PATIENT WAS SCHEDULED FOR CT LIVER NEEDLE BIOPSY THIS MORNING, AND SHE REFUSED TO SIGN THE CONSENT FORM AND PROCEDURE. IV LINE AT BRIANNA ML WITH ONGOING NS @100ML /HR. ON TELE MONITORING: SR, HR @ 75. PATIENT HAS GENERALIZED SCRATCH CAREY ALL OVER HER BODY, AND RASHES ON HER CHEST D/T TELE MONITOR LEADS ADHESIVES. PATIENT KEPT CLEAN AND DRY; ALL NEEDS MET ENDORSE TO INCOMING SHIFT,
--- NOTE | 2021-06-28 19:27 | NUR ---
SUPERVISOR OVENS OPENING NOTES RECEIVED PT LYING IN BED WITH EYES CLOSED. EASY TO AROUSE. A/O X 2-3 WITH PERIODS OF CONFUSION. C/O WORSENING RIGHT EAR PAIN, NO S/S OF INFECTION NOTED. NO SOB OR NOTED. TOLERATING ROOM AIR WELL. ON TELE MONITOR READING SINUS RHYTHM AT 82 BPM. HAS RIGHT UPPER ARM MIDLINE WITH ONGOING KCL 10 MEQ RUNNING AT 50 ML/HR. GENERALIZED SCRATCH CAREY AND REDNESS NOTED. SAFETY PRECAUTIONS IN PLACE. WILL CONTINUE PLAN OF CARE.
[2021-06-28 20:00] VITALS: BP 111/55
[2021-06-28] MEDS: MIRTAZAPINE 15 MG TABLET PO SCH (21:49)
[2021-06-28] MEDS: DONEPEZIL 5 MG TABLET PO SCH (21:49)
--- NOTE | 2021-06-28 21:59 | NUR ---
CIGARETTE MAKER NOTES PT C/O PAIN ON HER LEFT LEG AND RIGHT SHOULDER 10/10. CRYING AND RESTLESSNESS NOTED. PRN MORPHINE SO4 ADMINISTERED. TOLERATED WELL. WILL CONT. TO MONITOR.
[2021-06-29] VITALS: BP 114/53
[2021-06-29] MEDS: MORPHINE SULFATE INJ 2 MG/ML DISP.SYRIN IV PRN ×3 (02:48→20:26)
--- NOTE | 2021-06-29 03:00 | NUR ---
ELECTRICAL JOURNEYMAN NOTES PT CONTINUE TO C/O PAIN ON HER LEFT LEG AND RIGHT SHOULDER 10/10. PRN MORPHINE SO4 ADMINISTERED. WILL CONT. TO MONITOR.
[2021-06-29 04:00] VITALS: BP 116/70
[2021-06-29] MEDS: IV NS 0.9% 1,000 ML IV PRN ×2 (05:29→22:56)
[2021-06-29 06:37] LABS: BASOPHILS # (AUTO) 0.1 K/uL (0.0-0.2); BASOPHILS % (AUTO) 1.1 % (0.0-2.0); HEMATOCRIT 26 % (33-45); HEMOGLOBIN 8.2 g/dL (11.5-14.8); LYMPHOCYTES # (AUTO) 1.6 K/uL (0.8-4.8); LYMPHOCYTES % (AUTO) 24.9 % (20.0-44.0); MEAN CORPUSCULAR HGB CONC 31 g/dl (31.0-36.0); MEAN CORPUSCULAR VOLUME 77 fL (82-100); MONOCYTES # (AUTO) 0.6 K/uL (0.1-1.30); MONOCYTES % (AUTO) 9.8 % (2.0-12.0); NEUTROPHILS # (AUTO) 2.3 K/uL (1.8-8.9); PLATELET COUNT (AUTO) 332 K/uL (150-450); RED BLOOD CELL COUNT(AUTO) 3.43 MIL/uL (4.0-5.2); WHITE BLOOD COUNT (AUTO) 6.2 K/uL (4.3-11.0)
--- NOTE | 2021-06-29 06:38 | NUR ---
CAR PARKER CLOSING NOTES PT LYING IN BED WITH EYES CLOSED. EASY TO AROUSE. A/O X 2-3 WITH PERIODS OF CONFUSION. NOT IN APPARENT DISTRESS. NO C/O PAIN AT THIS TIME. BREATHING EVEN AND NON-LABORED ON ROOM AIR. ON TELE MONITOR READING SINUS RHYTHM AT 80 BPM. HAS RIGHT UPPER ARM MIDLINE WITH NS RUNNING AT 100 ML/HR. MAINTAINED ON CLEAR LIQUIDS. SKIN CARE RENDERED. KEPT DRY AND COMFORTABLE. SAFETY MEASURES IN PLACE: BED LOW AND LOCKED, SIDE RAILS UP X3, CALL LIGHT WITHIN REACH.
[2021-06-29 06:59] LABS: EOSINOPHILS % (AUTO) 27.2 % (0.0-6.0)
[2021-06-29 07:07] LABS: ALANINE AMINOTRANSFERASE 12 U/L (12-78); ALBUMIN 1.9 g/dL (3.4-5.0); ALKALINE PHOSPHATASE 138 U/L (46-116); ASPARTATE AMINOTRANSFERASE 17 U/L (15-37); BILIRUBIN,TOTAL 0.2 mg/dL (0.2-1.0); CARBON DIOXIDE 20 mmol/L (21-32); CHLORIDE 105 mmol/L (98-107); CREATININE 0.4 mg/dL (0.6-1.3); GLUCOSE 64 mg/dL (74-106); POTASSIUM 3.4 mmol/L (3.5-5.1); SODIUM SERUM 141 mmol/L (136-145); TOTAL PROTEIN, SERUM 5.9 g/dL (6.4-8.2); UREA NITROGEN, BLOOD 3 mg/dL (7-18)
--- NOTE | 2021-06-29 07:41 | NUR ---
DEVELOPMENT SCIENTIST OPENING NOTES PATIENT IS SLEEPING COMFORTABLY IN BED, ALERT AND ORIENTED X 4. NO COMPLAIN OF PAIN AND DISCOMFORT AT THIS TIME. IV LINE AT BRIANNA ML WITH ONGOING NS @100ML /HR INFUSING WELL, ON TELE MONITORING AND ON ROOM AIR SATURATING WELL. SAFETY MEASURES INITIATED: BED IN LOW POSITION, CALL LIGHTS WITHIN REACH. WILL CONTINUE TO MONITOR FOR DONNA.
[2021-06-29 07:52] LABS: CALCIUM, SERUM 8.1 mg/dL (8.5-10.1)
[2021-06-29 08:00] VITALS: BP 101/69
[2021-06-29] MEDS: CEFEPIME 2 GM in IV D5W 100 ML IV SCH ×2 (08:08→20:17)
[2021-06-29] MEDS: CHOLECALCIFEROL 1,000 UNIT TABLET (VIT D3) PO SCH (08:09)
[2021-06-29] MEDS: LEVETIRACETAM (250 MG) 250 MG TABLET PO SCH ×2 (08:09→21:18)
[2021-06-29] MEDS: DIVALPROEX SODIUM 500 MG TABLET.DR PO SCH ×2 (08:09→16:24)
[2021-06-29] MEDS: LEVOTHYROXINE SODIUM 25 MCG TABLET PO SCH (08:09)
[2021-06-29] MEDS: PANTOPRAZOLE 40 MG VIAL IV SCH ×2 (08:09→16:24)
[2021-06-29] MEDS: MULTIVIT W/MINERALS 1 TAB TABLET PO SCH (08:09)
[2021-06-29] MEDS: ASCORBIC ACID 500 MG TABLET PO SCH (08:09)
[2021-06-29] MEDS: ASPIRIN 81 MG TAB.CHEW PO SCH (08:11)
[2021-06-29] MEDS: HYDROCORTISONE OINT 1% 28.35 GM TUBE TP PRN ×2 (08:24→21:37)
[2021-06-29] MEDS ORDERED: HYDROCORTISONE 1% CREAM 28.35 GM TUBE TP PRN (09:00)
[2021-06-29] MEDS: POTASSIUM CL. PREMIX PERIPHER. 50 ML IV SCH ×4 (10:04→15:04)
[2021-06-29 12:00] VITALS: BP 108/60
[2021-06-29 14:32] LABS: BAND % (MANUAL) 1 % (0.0-5.0); EOSINOPHILS % (MANUAL) 29 % (0-4); LYMPHOCYTES % (MANUAL) 19 % (16-48); MONOCYTES % (MANUAL) 4 % (0-11.0); NEUTROPHILS % (MANUAL) 47 (42-76)
[2021-06-29 15:50] VITALS: BP 114/62
[2021-06-29] MEDS ORDERED: IOHEXOL-300 100 ML VIAL IV ONE (17:41)
[2021-06-29] MEDS ORDERED: IV NS 0.9% 250 ML IV ONE (17:41)
--- NOTE | 2021-06-29 17:59 | NUR ---
PATIENT WENT FOR CT SCAN @1755. PATIENT IS AWAKE AND STABLE.
--- NOTE | 2021-06-29 18:47 | NUR ---
HORTICULTURAL FARMER CLOSING NOTES PATIENT IS AWAKE COMFORTABLY IN BED, ALERT AND ORIENTED X 4. NO COMPLAIN OF PAIN AND DISCOMFORT AT THIS TIME. PATIENT CAME BACK FROM CT @ 1835, AND HER VITALS ARE STABLE. IV LINE AT BRIANNA ML WITH ONGOING NS @100ML /HR INFUSING WELL, INTACT AND PATENT. ON TELE MONITORING AND ON ROOM AIR SATURATING WELL. SAFETY MEASURES INITIATED: BED IN LOW POSITION, CALL LIGHTS WITHIN REACH. WILL ENDORSE TO INCOMING SHIFT FOR DONNA.
--- NOTE | 2021-06-29 19:30 | NUR ---
ADJUNCT PHLEBOTOMY INSTRUCTOR OPENING NOTES RECEIVED PT LYING IN BED AWAKE. A/O X3. C/O GENERALIZED PAIN 10/10. NO SOB OR NOTED, TOLERATING ROOM AIR WELL. ON TELE MONITOR READING SINUS RHYTHM AT 82 BPM. HAS RIGHT UPPER ARM MIDLINE AND SALINE LOCKED. NO S/S OF INFILTRATION NOTED. SAFETY MEASURES IN PLACE. WILL CONT. TO MONITOR.
[2021-06-29 20:00] VITALS: BP 119/59
--- NOTE | 2021-06-29 20:30 | NUR ---
TRESTLE MECHANIC NOTES PT C/O GENERALIZED PAIN 11/14, V/S WNL. ADMINISTERED PRN MORPHINE SO4. WENT TO SLEEP AFTER A FEW MINUTES. WILL CONT. TO MONITOR.
[2021-06-29] MEDS: MIRTAZAPINE 15 MG TABLET PO SCH (21:17)
[2021-06-29] MEDS: DONEPEZIL 5 MG TABLET PO SCH (21:18)
[2021-06-30] VITALS: BP 123/55
--- NOTE | 2021-06-30 00:04 | NUR ---
LINTER SAW SHARPENER NOTES PT REFUSING TELE MONITORING AND DOESN'T WANT TO HAVE THE LEADS BACK ON HER CHEST. EXPLAINED RISKS AND BENEFITS, STILL REFUSED. VERBALIZED SHE DOESN'T HAVE ANY HEART PROBLEM. WILL ATTEMPT AGAIN LATER.
[2021-06-30] MEDS: MORPHINE SULFATE INJ 2 MG/ML DISP.SYRIN IV PRN ×4 (01:57→23:39)
[2021-06-30 04:00] VITALS: BP 139/71
[2021-06-30 06:27] LABS: BASOPHILS # (AUTO) 0.1 K/uL (0.0-0.2); HEMATOCRIT 27 % (33-45); HEMOGLOBIN 8.4 g/dL (11.5-14.8); LYMPHOCYTES # (AUTO) 1.3 K/uL (0.8-4.8); LYMPHOCYTES % (AUTO) 22.3 % (20.0-44.0); MEAN CORPUSCULAR HGB CONC 31 g/dl (31.0-36.0); MEAN CORPUSCULAR VOLUME 77 fL (82-100); MONOCYTES # (AUTO) 0.7 K/uL (0.1-1.30); MONOCYTES % (AUTO) 11.2 % (2.0-12.0); NEUTROPHILS # (AUTO) 2.2 K/uL (1.8-8.9); NEUTROPHILS % (AUTO) 38.1 % (43.0-81.0); PLATELET COUNT (AUTO) 355 K/uL (150-450); RED BLOOD CELL COUNT(AUTO) 3.54 MIL/uL (4.0-5.2); WHITE BLOOD COUNT (AUTO) 5.9 K/uL (4.3-11.0)
--- NOTE | 2021-06-30 06:29 | NUR ---
SAFETY COMPANION CLOSING NOTES PT LYING IN BED ASLEEP. EASY TO AROUSE. A/O X3 WITH PERIODS OF CONFUSION NOTED. NO C/O PAIN OR DISCOMFORT AT THIS TIME. BREATHING EVEN AND NON-LABORED ON ROOM AIR. TELE MONITORING REFUSED. HAS RIGHT UPPER ARM MIDLINE WITH NS RUNNING AT 100 ML/HR. INTACT, PATENT AND FLUSHING. SKIN CARE RENDERED. ALL NEEDS ATTENDED. SAFETY MEASURES IN PLACE: BED LOW AND LOCKED, SIDE RAILS UP X3, CALL LIGHT WITHIN REACH.
[2021-06-30 07:03] LABS: CALCIUM, SERUM 8.1 mg/dL (8.5-10.1); CARBON DIOXIDE 26 mmol/L (21-32); CHLORIDE 102 mmol/L (98-107); CREATININE 0.4 mg/dL (0.6-1.3); MAGNESIUM 1.5 mg/dL (1.8-2.4); PHOSPHORUS 3.6 mg/dL (2.5-4.9); POTASSIUM 3.4 mmol/L (3.5-5.1); SODIUM SERUM 138 mmol/L (136-145); UREA NITROGEN, BLOOD 2 mg/dL (7-18)
[2021-06-30 07:25] LABS: GLUCOSE 49 mg/dL (74-106)
--- NOTE | 2021-06-30 07:30 | NUR ---
MANUAL ARTS TEACHER OPENING NOTE' Patient in bed, asleep. A/O x 3. On room air, breathing evenly and unlabored. no SOB or s/s of distress noted. IV access on BRIANNA midline infusing Ns at 100 ml/hr. Safety precautions in place: bed in low, locked position; siderails up x 2; call light within reach. Will continue to monitor.
--- NOTE | 2021-06-30 07:45 | NUR ---
RN NOTE Received critical value, patient's blood glucose is 49. Blood glucose rechecked via fingerstick, 39. Rechecked again, 37. Dr. Curtis notified and ordered D50 injection. Order carried out.
[2021-06-30] MEDS ORDERED: DEXTROSE 50%-WATER 50 ML DISP.SYRIN IVP ONE (09:00)
[2021-06-30] MEDS: LEVOTHYROXINE SODIUM 25 MCG TABLET PO SCH (09:12)
[2021-06-30] MEDS: PANTOPRAZOLE 40 MG VIAL IV SCH ×2 (09:13→16:41)
[2021-06-30] MEDS: CEFEPIME 2 GM in IV D5W 100 ML IV SCH ×2 (09:13→20:42)
[2021-06-30] MEDS: CHOLECALCIFEROL 1,000 UNIT TABLET (VIT D3) PO SCH (09:14)
[2021-06-30] MEDS: DIVALPROEX SODIUM 500 MG TABLET.DR PO SCH ×2 (09:14→16:41)
[2021-06-30] MEDS: LEVETIRACETAM (250 MG) 250 MG TABLET PO SCH ×2 (09:14→21:28)
[2021-06-30] MEDS: MULTIVIT W/MINERALS 1 TAB TABLET PO SCH (09:14)
[2021-06-30] MEDS: ASCORBIC ACID 500 MG TABLET PO SCH (09:14)
[2021-06-30] MEDS: ASPIRIN 81 MG TAB.CHEW PO SCH (09:14)
[2021-06-30] MEDS: IV NS 0.9% 1,000 ML IV PRN ×2 (09:24→20:41)
--- NOTE | 2021-06-30 09:30 | NUR ---
RN NOTE Patient complained of pain on Right shoulder and Right side of back, 8/10 pain scale. PRN Morphine 2 mg given. will continue to monitor.
[2021-06-30 09:37] LABS: ALBUMIN 1.9 g/dL (3.4-5.0); BILIRUBIN,DIRECT 0.1 mg/dL (0.0-0.2); BILIRUBIN,TOTAL 0.2 mg/dL (0.2-1.0); TOTAL PROTEIN, SERUM 6.1 g/dL (6.4-8.2)
[2021-06-30] MEDS ORDERED: POTASSIUM CHLORIDE 20 MEQ TAB.PRT.SR PO SCH (10:00)
--- NOTE | 2021-06-30 10:00 | NUR ---
RN NOTE Rechecked blood glucose, 141. Will continue to monitor.
[2021-06-30 10:23] LABS: EOSINOPHILS % (AUTO) 27.4 % (0.0-6.0)
[2021-06-30] MEDS ORDERED: MAGNESIUM OXIDE 400 MG TABLET PO ONE (11:30)
[2021-06-30] MEDS: ENSURE CLEAR 237 ML LIQUID (MIX BERRY) PO SCH ×2 (11:44→16:41)
--- NOTE | 2021-06-30 16:47 | NUR ---
RN NOTE Patient complained of pain on Right shoulder and Right side of back, 8/10 pain scale. PRN Morphine 2 mg given. will continue to monitor.
--- NOTE | 2021-06-30 19:20 | NUR ---
MS RN OPENING NOTE RECEIVED PATIENT IN BED; AWAKE, ALERT AND ORIENTED X3. ON ROOM AIR, TOLERATING WELL. BREATHING IS EVEN AND NONLABORED. NOT IN ANY FORM OF RESPIRATORY DISTRESS. WITH IV ACCESS ON RIGHT UPPER ARM MIDLINE INFUSING WITH NS REGULATED @ 100 ML/HR; INTACT, PATENT AND FLUSHES WELL. ABLE TO MAKE NEEDS KNOWN. SAFETY MEASURES IMPLEMENTED: CALL LIGHT AND TABLE WITHIN EASY REACH, SIDE RAILS UP X2, BED IN LOWEST LOCKED POSITION. WILL CONTINUE TO MONITOR
--- NOTE | 2021-06-30 19:50 | NUR ---
CORK FLOOR INSTALLER CLOSING NOTE Patient in bed, resting. A/O x 3, able to make needs known. Stable on room air, breathing evenly and unlabored. no SOB or s/s of distress noted. IV access on BRIANNA midline infusing Ns at 100 ml/hr. Due meds given. All needs attended to. Turned and repositioned, as tolerated. Safety precautions maintained: bed in low, locked position; siderails up x 2; call light within reach. Will endorse to retail shift leader nurse for DONNA.
[2021-06-30 20:00] VITALS: BP 118/52
[2021-06-30 20:15] VITALS: BP 118/52
[2021-06-30] MEDS: DONEPEZIL 5 MG TABLET PO SCH (21:28)
[2021-06-30] MEDS: MIRTAZAPINE 15 MG TABLET PO SCH (21:28)
[2021-07-01 06:39] LABS: BASOPHILS % (AUTO) 0.9 % (0.0-2.0); HEMATOCRIT 28 % (33-45); HEMOGLOBIN 8.7 g/dL (11.5-14.8); LYMPHOCYTES # (AUTO) 1.6 K/uL (0.8-4.8); LYMPHOCYTES % (AUTO) 28.2 % (20.0-44.0); MEAN CORPUSCULAR HGB CONC 31 g/dl (31.0-36.0); MEAN CORPUSCULAR VOLUME 76 fL (82-100); MONOCYTES # (AUTO) 0.6 K/uL (0.1-1.30); MONOCYTES % (AUTO) 10.9 % (2.0-12.0); NEUTROPHILS # (AUTO) 1.6 K/uL (1.8-8.9); NEUTROPHILS % (AUTO) 28.7 % (43.0-81.0); PLATELET COUNT (AUTO) 370 K/uL (150-450); RED BLOOD CELL COUNT(AUTO) 3.64 MIL/uL (4.0-5.2); WHITE BLOOD COUNT (AUTO) 5.6 K/uL (4.3-11.0)
[2021-07-01 06:54] LABS: EOSINOPHILS % (AUTO) 31.3 % (0.0-6.0)
--- NOTE | 2021-07-01 06:55 | NUR ---
MS RN CLOSING NOTE PATIENT IS IN BED; AWAKE, ALERT AND ORIENTED X3. ON ROOM AIR, TOLERATING WELL. BREATHING IS EVEN AND NONLABORED. NOT IN ANY FORM OF RESPIRATORY DISTRESS. NEEDS ATTENDED. SAFETY MEASURES IN PLACE: CALL LIGHT AND TABLE WITHIN EASY REACH, SIDE RAILS UP X2, BED IN LOWEST LOCKED POSITION. WILL ENDORSED TO MORNING SHIFT FOR DONNA.
[2021-07-01 07:11] LABS: ALANINE AMINOTRANSFERASE 10 U/L (12-78); ALBUMIN 1.7 g/dL (3.4-5.0); ALKALINE PHOSPHATASE 108 U/L (46-116); ASPARTATE AMINOTRANSFERASE 18 U/L (15-37); BILIRUBIN,TOTAL 0.1 mg/dL (0.2-1.0); TOTAL PROTEIN, SERUM 5.8 g/dL (6.4-8.2)
[2021-07-01 07:36] LABS: CALCIUM, SERUM 7.9 mg/dL (8.5-10.1); CARBON DIOXIDE 28 mmol/L (21-32); CHLORIDE 101 mmol/L (98-107); CREATININE 0.4 mg/dL (0.6-1.3); GLUCOSE 69 mg/dL (74-106); MAGNESIUM 1.4 mg/dL (1.8-2.4); SODIUM SERUM 136 mmol/L (136-145); UREA NITROGEN, BLOOD 2 mg/dL (7-18)
[2021-07-01 08:03] VITALS: BP 110/56
--- NOTE | 2021-07-01 08:20 | NUR ---
ms rn received on bed, awake,alert,oriented x3,not in any form of distress, respirations even and unlabored,no sob noted, lungs are diminished,abdomen even and unlabored,no sob noted, denies pain at this time, all needs attended.
[2021-07-01] MEDS ORDERED: POTASSIUM CHLORIDE 20 MEQ TAB.PRT.SR PO ONE (09:00)
[2021-07-01] MEDS ORDERED: PEG 3350/NA SULF,BICARB,CL/KCL 4,000 ML BOTTLE PO ONE (09:30)
--- NOTE | 2021-07-01 09:50 | NUR ---
ms bearden breakfast served,due meds given, tolerated well.
[2021-07-01] MEDS ORDERED: Magnesium 1GM/D5W 100ML PREMIX 100 ML IV SCH (10:00)
[2021-07-01] MEDS: PANTOPRAZOLE 40 MG VIAL IV SCH ×2 (10:28→17:32)
[2021-07-01] MEDS: ASPIRIN 81 MG TAB.CHEW PO SCH (10:28)
[2021-07-01] MEDS: ASCORBIC ACID 500 MG TABLET PO SCH (10:28)
[2021-07-01] MEDS: LEVOTHYROXINE SODIUM 25 MCG TABLET PO SCH (10:28)
[2021-07-01] MEDS: LEVETIRACETAM (250 MG) 250 MG TABLET PO SCH ×2 (10:29→21:04)
[2021-07-01] MEDS: MULTIVIT W/MINERALS 1 TAB TABLET PO SCH (10:29)
[2021-07-01] MEDS: CHOLECALCIFEROL 1,000 UNIT TABLET (VIT D3) PO SCH (10:29)
[2021-07-01] MEDS: DIVALPROEX SODIUM 500 MG TABLET.DR PO SCH ×2 (10:29→17:32)
[2021-07-01] MEDS: ENSURE CLEAR 237 ML LIQUID (MIX BERRY) PO SCH ×3 (10:31→17:32)
--- NOTE | 2021-07-01 11:00 | NUR ---
ms rn was seen by , w/ orders made and carried out, started on golytely at this time, tolerated so far.
[2021-07-01] MEDS: IV NS 0.9% 1,000 ML IV PRN (11:30)
[2021-07-01] MEDS: MORPHINE SULFATE INJ 2 MG/ML DISP.SYRIN IV PRN (11:42)
[2021-07-01 12:26] LABS: EOSINOPHILS % (MANUAL) 32 % (0-4); LYMPHOCYTES % (MANUAL) 32 % (16-48); MONOCYTES % (MANUAL) 8 % (0-11.0); NEUTROPHILS % (MANUAL) 28 (42-76)
[2021-07-01 15:59] VITALS: BP 112/52
--- NOTE | 2021-07-01 18:32 | NUR ---
ms rn on bed,all needs all needs attended.
--- NOTE | 2021-07-01 19:16 | NUR ---
MS RN OPENING NOTE PATIENT IS IN BED; AWAKE, ALERT AND ORIENTED X3. ON ROOM AIR, TOLERATING WELL. BREATHING IS EVEN AND NONLABORED. NOT IN ANY FORM OF RESPIRATORY DISTRESS. NEEDS ATTENDED. SAFETY MEASURES IN PLACE: CALL LIGHT AND TABLE WITHIN EASY REACH, SIDE RAILS UP X2, BED IN LOWEST LOCKED POSITION. GOLYTELY AT BEDSIDE PT HAS STARTED TAKING IT WILL MAKE SURE PT FINISHES IT. PT TO BE NPO AFTER MIDNIGHT FOR COLONOSCOPY.
[2021-07-01 19:56] VITALS: BP 123/64
--- NOTE | 2021-07-01 20:58 | NUR ---
MS RN NOTES pt keeps refusing to drink bowel prep despite explanation of procedure she will have tomorrow and why its necessary x3 refused x3. pt stated " i wont want to drink that why don't you drink it then" " i understand i cant have the colonoscopy if i dont drink it i guess i just wont have it dr Olguin aware.
[2021-07-01] MEDS: DONEPEZIL 5 MG TABLET PO SCH (21:04)
[2021-07-01] MEDS: MIRTAZAPINE 15 MG TABLET PO SCH (21:04)
[2021-07-01] MEDS: ACETAMINOPHEN 325 MG TABLET PO PRN (21:12)
--- NOTE | 2021-07-01 21:31 | NUR ---
MS RN NOTES pt having 3/10 pain tylenol provided tolerated well. will continue to monitor.
--- NOTE | 2021-07-02 00:42 | NUR ---
MS RN NOTES noted pt with scabs and rashes all over her body that appear to be in a pattern of straight line it appears to be scabies. charge nurse aware. construction producer aware placed pt on contact precautions construction producer ordered Elimite cream to be applied in the morning will endorse to day shift nurse.
[2021-07-02] MEDS ORDERED: PERMETHRIN 5% CRM 60 GM TUBE TP ONE ×2 (01:00→09:00)
[2021-07-02 06:19] LABS: ALANINE AMINOTRANSFERASE 8 U/L (12-78); ALKALINE PHOSPHATASE 128 U/L (46-116); ASPARTATE AMINOTRANSFERASE 21 U/L (15-37); BILIRUBIN,TOTAL 0.2 mg/dL (0.2-1.0); CARBON DIOXIDE 31 mmol/L (21-32); CHLORIDE 107 mmol/L (98-107); CREATININE 0.4 mg/dL (0.6-1.3); GLUCOSE 67 mg/dL (74-106); POTASSIUM 4.1 mmol/L (3.5-5.1); SODIUM SERUM 143 mmol/L (136-145); TOTAL PROTEIN, SERUM 6.4 g/dL (6.4-8.2); UREA NITROGEN, BLOOD 2 mg/dL (7-18)
[2021-07-02 06:23] LABS: BASOPHILS # (AUTO) 0.1 K/uL (0.0-0.2); BASOPHILS % (AUTO) 1.3 % (0.0-2.0); HEMATOCRIT 31 % (33-45); HEMOGLOBIN 9.7 g/dL (11.5-14.8); LYMPHOCYTES # (AUTO) 1.6 K/uL (0.8-4.8); LYMPHOCYTES % (AUTO) 30.2 % (20.0-44.0); MEAN CORPUSCULAR HGB CONC 32 g/dl (31.0-36.0); MEAN CORPUSCULAR VOLUME 77 fL (82-100); MONOCYTES # (AUTO) 0.5 K/uL (0.1-1.30); MONOCYTES % (AUTO) 8.7 % (2.0-12.0); NEUTROPHILS # (AUTO) 1.4 K/uL (1.8-8.9); NEUTROPHILS % (AUTO) 26.8 % (43.0-81.0); PLATELET COUNT (AUTO) 397 K/uL (150-450); RED BLOOD CELL COUNT(AUTO) 4.01 MIL/uL (4.0-5.2); WHITE BLOOD COUNT (AUTO) 5.4 K/uL (4.3-11.0)
[2021-07-02 06:27] LABS: IRON, SERUM 45 ug/dl (50-175); TOTAL IRON BINDING CAPACITY 159 ug/dl (250-450)
--- NOTE | 2021-07-02 06:27 | NUR ---
MS RN OPENING NOTE PATIENT IS IN BED; AWAKE, ALERT AND ORIENTED X3. ON ROOM AIR, TOLERATING WELL. BREATHING IS EVEN AND NONLABORED. NOT IN ANY FORM OF RESPIRATORY DISTRESS. NEEDS ATTENDED. SAFETY MEASURES IN PLACE: CALL LIGHT AND TABLE WITHIN EASY REACH, SIDE RAILS UP X2, BED IN LOWEST LOCKED POSITION. GOLYTELY AT BEDSIDE PT HAS STARTED TAKING GOLYTELY YESTERDAY EVENING HOWEVER DECIDED SHE NO LONGER WANTED TO TAKE IT DESPITE RISK AND BENEFITS EXPLAINED MULTIPLE TIMED DR NEFF CONTACTED AND IS AWARE. WILL ENDORSE CARE TO DAY SHIFT NURSE.
[2021-07-02 06:41] LABS: FERRITIN 240 ng/mL (8-388)
--- NOTE | 2021-07-02 07:25 | NUR ---
ms rn received on bed, awake,alert,oriented x3,not in any form of distress, respirations even and unlabored,no sob noted, lungs are diminished, abdomen soft,positive bowel sounds, denies pain at this time,all needs attended.
[2021-07-02 08:00] VITALS: BP 141/70
--- NOTE | 2021-07-02 09:50 | NUR ---
ms suleiman breakfast served,refused, meds given po, tolerated well.
[2021-07-02] MEDS: PANTOPRAZOLE 40 MG VIAL IV SCH ×2 (09:53→18:08)
[2021-07-02] MEDS: ASPIRIN 81 MG TAB.CHEW PO SCH (09:53)
[2021-07-02] MEDS: ASCORBIC ACID 500 MG TABLET PO SCH (09:53)
[2021-07-02] MEDS: DIVALPROEX SODIUM 500 MG TABLET.DR PO SCH ×2 (09:53→18:08)
[2021-07-02] MEDS: CHOLECALCIFEROL 1,000 UNIT TABLET (VIT D3) PO SCH (09:53)
[2021-07-02] MEDS: MULTIVIT W/MINERALS 1 TAB TABLET PO SCH (09:53)
[2021-07-02] MEDS: LEVETIRACETAM (250 MG) 250 MG TABLET PO SCH ×2 (09:54→21:47)
[2021-07-02] MEDS: ENSURE CLEAR 237 ML LIQUID (MIX BERRY) PO SCH ×3 (09:55→18:08)
[2021-07-02] MEDS: LEVOTHYROXINE SODIUM 25 MCG TABLET PO SCH (09:57)
[2021-07-02 10:07] LABS: EOSINOPHILS % (MANUAL) 31 % (0-4); LYMPHOCYTES % (MANUAL) 36 % (16-48); MONOCYTES % (MANUAL) 6 % (0-11.0); NEUTROPHILS % (MANUAL) 27 (42-76)
[2021-07-02] MEDS: MORPHINE SULFATE INJ 2 MG/ML DISP.SYRIN IV PRN ×2 (14:32→19:49)
[2021-07-02 16:00] VITALS: BP 124/70
--- NOTE | 2021-07-02 16:00 | NUR ---
ms rn pm care done, elimite cream applied to all body area.
--- NOTE | 2021-07-02 18:55 | NUR ---
ms rn on bed, no disttress noted,all needs attended.
--- NOTE | 2021-07-02 19:30 | NUR ---
MS RN OPENING NOTE RECEIVED PATIENT IN BED, A/OX3-4. NO S/S OF APPARENT DISTRESS ON ROOM AIR. C/O 9/10 PAIN IN HER ABDOMEN AND EAR. IV NS RUNNING @100MLS/HR. SAFETY IN PLACE, AND CONTACT PRECAUTION IN PLACE FOR SCABIES. RE-ORIENTED BY THE USE OF CALL LIGHT. WILL CONTINUE WITH PATIENT'S CARE PLAN.
[2021-07-02] MEDS: IV NS 0.9% 1,000 ML IV PRN (19:56)
[2021-07-02 20:00] VITALS: BP 140/71
[2021-07-02] MEDS: MIRTAZAPINE 15 MG TABLET PO SCH (21:47)
[2021-07-02] MEDS: DONEPEZIL 5 MG TABLET PO SCH (21:47)
--- NOTE | 2021-07-03 03:45 | NUR ---
MS RN NOTE BED BATH GIVEN TO ENSURE [employer] WAS WASHED OFF PATIENT AFTER 12 HOURS.
[2021-07-03 05:55] LABS: BASOPHILS # (AUTO) 0.1 K/uL (0.0-0.2); BASOPHILS % (AUTO) 1.2 % (0.0-2.0); HEMATOCRIT 30 % (33-45); HEMOGLOBIN 9.3 g/dL (11.5-14.8); LYMPHOCYTES # (AUTO) 1.5 K/uL (0.8-4.8); LYMPHOCYTES % (AUTO) 30.6 % (20.0-44.0); MEAN CORPUSCULAR HGB CONC 31 g/dl (31.0-36.0); MEAN CORPUSCULAR VOLUME 76 fL (82-100); MONOCYTES # (AUTO) 0.4 K/uL (0.1-1.30); MONOCYTES % (AUTO) 7.8 % (2.0-12.0); NEUTROPHILS # (AUTO) 1.6 K/uL (1.8-8.9); PLATELET COUNT (AUTO) 343 K/uL (150-450); RED BLOOD CELL COUNT(AUTO) 3.91 MIL/uL (4.0-5.2)
[2021-07-03 05:59] LABS: CALCIUM, SERUM 8.3 mg/dL (8.5-10.1); CARBON DIOXIDE 27 mmol/L (21-32); CHLORIDE 105 mmol/L (98-107); CREATININE 0.4 mg/dL (0.6-1.3); GLUCOSE 53 mg/dL (74-106); POTASSIUM 3.8 mmol/L (3.5-5.1); SODIUM SERUM 141 mmol/L (136-145); UREA NITROGEN, BLOOD 2 mg/dL (7-18)
[2021-07-03 06:05] LABS: ALANINE AMINOTRANSFERASE 9 U/L (12-78); ALKALINE PHOSPHATASE 118 U/L (46-116); ASPARTATE AMINOTRANSFERASE 19 U/L (15-37); BILIRUBIN,TOTAL 0.3 mg/dL (0.2-1.0); TOTAL PROTEIN, SERUM 6.3 g/dL (6.4-8.2)
[2021-07-03 06:45] LABS: EOSINOPHILS % (AUTO) 29.4 % (0.0-6.0)
--- NOTE | 2021-07-03 07:05 | NUR ---
MS RN CLOSING NOTE ALL NEEDS ATTENDED. REPORT GIVEN TO ANI FOR CONTINUITY OF CARE.
--- NOTE | 2021-07-03 07:31 | NUR ---
MS RN OPENING NOTE RECEIVED PATIENT AWAKE IN BED, A/OX3-4. NO DISTRESS NOTED.ON ROOM AIR. NO PAIN NOTED. IV ACCESS BRIANNA MIDLINE. NS RUNNING @100MLS/HR. SAFETY IN PLACE. BED LOCKED IN THE LOWEST POSITION. CALL LIGHT AND TABLE IN REACH.CONTACT PRECAUTION IN PLACE. WILL CONTINUE TO MONITOR.
[2021-07-03] MEDS: LEVOTHYROXINE SODIUM 25 MCG TABLET PO SCH (07:44)
[2021-07-03 08:00] VITALS: BP 137/64
[2021-07-03] MEDS: CHOLECALCIFEROL 1,000 UNIT TABLET (VIT D3) PO SCH (09:19)
[2021-07-03] MEDS: ASCORBIC ACID 500 MG TABLET PO SCH (09:19)
[2021-07-03] MEDS: PANTOPRAZOLE 40 MG VIAL IV SCH ×2 (09:19→16:49)
[2021-07-03] MEDS: LEVETIRACETAM (250 MG) 250 MG TABLET PO SCH ×2 (09:19→21:31)
[2021-07-03] MEDS: MULTIVIT W/MINERALS 1 TAB TABLET PO SCH (09:19)
[2021-07-03] MEDS: DIVALPROEX SODIUM 500 MG TABLET.DR PO SCH ×2 (09:19→16:49)
[2021-07-03] MEDS: ENSURE CLEAR 237 ML LIQUID (MIX BERRY) PO SCH ×3 (09:20→16:49)
[2021-07-03] MEDS: MORPHINE SULFATE INJ 2 MG/ML DISP.SYRIN IV PRN ×3 (09:26→21:32)
[2021-07-03 10:00] LABS: EOSINOPHILS % (MANUAL) 36 % (0-4); LYMPHOCYTES % (MANUAL) 26 % (16-48); MONOCYTES % (MANUAL) 6 % (0-11.0); NEUTROPHILS % (MANUAL) 31 (42-76); REACTIVE LYMPHOCYTES 1 % (0-0)
[2021-07-03] MEDS ORDERED: SOD FERRIC GLUC 125 MG in IV NS 0.9% 100 ML IV ONE (14:00)
[2021-07-03] MEDS: IV NS 0.9% 1,000 ML IV PRN (15:05)
--- NOTE | 2021-07-03 18:38 | NUR ---
MS RN CLOSING NOTE PATIENT AWAKE IN BED, A/OX3-4. NO DISTRESS NOTED.ON ROOM AIR. NO PAIN NOTED. IV ACCESS BRIANNA MIDLINE INTACT.INFUSING NS @100MLS/HR. ALL DUE MEDS GIVEN ORDERED. ON CONTACT ISOLATION FOR SCABIES. ALL DUE MEDS GIVEN ORDERED. SAFETY MEASURES IN PLACE. BED LOCKED IN THE LOWEST POSITION. CALL LIGHT AND TABLE IN REACH.CONTACT PRECAUTION IN PLACE. WILL ENDORSE FOR DONNA.
--- NOTE | 2021-07-03 18:40 | NUR ---
RN NOTES PER CHARGE NURSE AND LANDING SUPPORT SPECIALIST FOLLOW UP, PATIENT'S SON IN LAW( OLIVE ) IS NOT POA FOR THE PATIENT. AND OLIVE IS NOT MAKING ANY DECISIONS FOR THE PATIENT .
--- NOTE | 2021-07-03 19:47 | NUR ---
MS RN OPENING NOTE RECEIVED PATIENT IN BED, A/OX3-4. NO S/S OF APPARENT DISTRESS ON ROOM AIR. NO C/O PAIN AT THIS TIME. IV NS RUNNING @100MLS/HR. SAFETY IN PLACE, AND CONTACT PRECAUTION IN PLACE FOR SCABIES. RE-ORIENTED BY THE USE OF CALL LIGHT. WILL CONTINUE WITH PATIENT'S CARE PLAN.
[2021-07-03 20:00] VITALS: BP 145/92
[2021-07-03] MEDS: MIRTAZAPINE 15 MG TABLET PO SCH (21:34)
[2021-07-03] MEDS: DONEPEZIL 5 MG TABLET PO SCH (21:34)
--- NOTE | 2021-07-03 23:00 | NUR ---
MS RN NOTE NOTICED PATIENT BLOOD SUGAR ON LAB WAS 53. DECIDED TO CHECK BLOOD SUGAR AT THIS HOUR AND PATIENT BLOOD SUGAR 39, PATIENT ASYMPTOMATIC AND DENIES FEELING ANYTHING. CHARGE NURSE AWARE, YAAKOV ORDERED STAT BLOOD GLUCOSE LAB TEST. GIVEN D50 PER PROTOCOL. WILL RE-ASSESS.
[2021-07-04] MEDS ORDERED: DEXTROSE 50%-WATER 50 ML DISP.SYRIN IVP ONE
--- NOTE | 2021-07-04 01:00 | NUR ---
MS RN NOTE RECHECKED BLOOD SUGAR AFTER D50. WENT UP TO 153. PATIENT STABLE AT THIS TIME. WILL CONTINUE TO MONITOR.
[2021-07-04 06:41] LABS: BASOPHILS # (AUTO) 0.1 K/uL (0.0-0.2); BASOPHILS % (AUTO) 1.1 % (0.0-2.0); HEMATOCRIT 30 % (33-45); HEMOGLOBIN 9.5 g/dL (11.5-14.8); LYMPHOCYTES # (AUTO) 1.6 K/uL (0.8-4.8); LYMPHOCYTES % (AUTO) 29.9 % (20.0-44.0); MEAN CORPUSCULAR HGB CONC 31 g/dl (31.0-36.0); MEAN CORPUSCULAR VOLUME 76 fL (82-100); MONOCYTES # (AUTO) 0.5 K/uL (0.1-1.30); MONOCYTES % (AUTO) 9.3 % (2.0-12.0); NEUTROPHILS # (AUTO) 1.6 K/uL (1.8-8.9); NEUTROPHILS % (AUTO) 30.3 % (43.0-81.0); PLATELET COUNT (AUTO) 352 K/uL (150-450); RED BLOOD CELL COUNT(AUTO) 3.97 MIL/uL (4.0-5.2); WHITE BLOOD COUNT (AUTO) 5.3 K/uL (4.3-11.0)
[2021-07-04 07:05] LABS: ALANINE AMINOTRANSFERASE < 6 U/L (12-78); ALKALINE PHOSPHATASE 115 U/L (46-116); ASPARTATE AMINOTRANSFERASE 16 U/L (15-37); BILIRUBIN,TOTAL 0.3 mg/dL (0.2-1.0); CALCIUM, SERUM 7.9 mg/dL (8.5-10.1); CARBON DIOXIDE 28 mmol/L (21-32); CHLORIDE 106 mmol/L (98-107); CREATININE 0.4 mg/dL (0.6-1.3); POTASSIUM 3.4 mmol/L (3.5-5.1); SODIUM SERUM 143 mmol/L (136-145); TOTAL PROTEIN, SERUM 6.4 g/dL (6.4-8.2); UREA NITROGEN, BLOOD 3 mg/dL (7-18)
[2021-07-04] MEDS: LEVOTHYROXINE SODIUM 25 MCG TABLET PO SCH (07:19)
[2021-07-04 07:29] LABS: EOSINOPHILS % (AUTO) 29.4 % (0.0-6.0)
--- NOTE | 2021-07-04 07:43 | NUR ---
MS RN OPENING NOTE RECEIVED PATIENT AWAKE IN BED, A/OX3-4. NO DISTRESS NOTED.ON ROOM AIR. NO PAIN NOTED. IV ACCESS BRIANNA MIDLINE. NS RUNNING @100MLS/HR. SAFETY MEASURES IN PLACE. BED LOCKED IN THE LOWEST POSITION. CALL LIGHT AND TABLE IN REACH.CONTACT PRECAUTION FOR SCABIES IN PLACE. WILL CONTINUE TO MONITOR.
[2021-07-04 07:49] LABS: GLUCOSE 48 mg/dL (74-106)
--- NOTE | 2021-07-04 07:49 | NUR ---
RN NOTES LAB CALLED AT 0749 AND REPORTED GLUCOSE LEVEL OF 48. GAVE ORANGE JUICE AND RECHECKED BLOOD SUGAR NOTED 62 READING ON GLUCOMETER.
[2021-07-04 08:00] VITALS: BP 109/54
[2021-07-04] MEDS: LEVETIRACETAM (250 MG) 250 MG TABLET PO SCH ×2 (08:46→21:19)
[2021-07-04] MEDS: PANTOPRAZOLE 40 MG VIAL IV SCH ×2 (08:46→16:34)
[2021-07-04] MEDS: CHOLECALCIFEROL 1,000 UNIT TABLET (VIT D3) PO SCH (08:47)
[2021-07-04] MEDS: ASCORBIC ACID 500 MG TABLET PO SCH (08:47)
[2021-07-04] MEDS: ENSURE CLEAR 237 ML LIQUID (MIX BERRY) PO SCH ×3 (08:47→16:34)
[2021-07-04] MEDS: DIVALPROEX SODIUM 500 MG TABLET.DR PO SCH ×2 (08:47→16:34)
[2021-07-04] MEDS: MULTIVIT W/MINERALS 1 TAB TABLET PO SCH (08:47)
[2021-07-04] MEDS: MORPHINE SULFATE INJ 2 MG/ML DISP.SYRIN IV PRN ×3 (09:12→21:20)
[2021-07-04 10:38] LABS: EOSINOPHILS % (MANUAL) 32 % (0-4); LYMPHOCYTES % (MANUAL) 30 % (16-48); MONOCYTES % (MANUAL) 2 % (0-11.0); NEUTROPHILS % (MANUAL) 36 (42-76)
[2021-07-04] MEDS: POTASSIUM CL. PREMIX PERIPHER. 50 ML IV SCH ×2 (10:44→12:26)
[2021-07-04] MEDS: IV D5/0.45 NACL 1,000 ML IV PRN ×2 (10:48→21:00)
[2021-07-04 16:07] VITALS: BP 108/57
--- NOTE | 2021-07-04 18:45 | NUR ---
MS RN CLOSING NOTE PATIENT AWAKE IN BED, A/OX3-4. NO DISTRESS NOTED.ON ROOM AIR. NO PAIN NOTED. IV ACCESS BRIANNA MIDLINE INTACT RUNNING D5 1/2 NS @100MLS/HR. BLOOD SUGAR CHECKED AT 1705 AND NOTED 73. ALL DUE MEDS GIVEN ORDERED. PATIENT NOT HAVING PROPER FLUID INTAKE. ENCOURAGE THE PATIENT AND EDUCATE FOR PROPER FLUID INTAKE. NPO FROM MIDNIGHT FOR TOMORROWS LIVER BIOPSY. ALL SAFETY MEASURES IN PLACE. BED LOCKED IN THE LOWEST POSITION. CALL LIGHT AND TABLE IN REACH.CONTACT PRECAUTION FOR SCABIES IN PLACE. WILL ENDORSE FOR DONNA.
--- NOTE | 2021-07-04 19:20 | NUR ---
RN NOTE PT RESTING IN BED, A/OX3-4, ABLE TO MAKE NEEDS KNOWN. RESPIRATIONS EVEN/UNLABORED. IV SITE: BRIANNA MIDLINE INTACT, RUNNING D5 1/2NS @100ML/HR. PT IN NO ACUTE DISTRESS. SAFETY MEASURES IN PLACE, BED IN LOWEST LOCKED POSITION, S/R UPX2, CALL LIGHT WITHIN REACH. WILL CONT TO MONITOR.
[2021-07-04 20:00] VITALS: BP 148/69
[2021-07-04] MEDS: DONEPEZIL 5 MG TABLET PO SCH (21:19)
[2021-07-04] MEDS: MIRTAZAPINE 15 MG TABLET PO SCH (21:20)
[2021-07-05 06:30] LABS: CALCIUM, SERUM 8.3 mg/dL (8.5-10.1); CARBON DIOXIDE 29 mmol/L (21-32); CHLORIDE 105 mmol/L (98-107); CREATININE 0.3 mg/dL (0.6-1.3); GLUCOSE 103 mg/dL (74-106); POTASSIUM 3.1 mmol/L (3.5-5.1); SODIUM SERUM 141 mmol/L (136-145); UREA NITROGEN, BLOOD 1 mg/dL (7-18)
[2021-07-05] MEDS: IV D5/0.45 NACL 1,000 ML IV PRN (06:34)
--- NOTE | 2021-07-05 06:54 | NUR ---
RN NOTE PT RESTING IN BED, EASILY AROUSABLE TO STIMULI. RESPIRATIONS EVEN/UNLABORED. DENIES PAIN, DENIES N/V. PT NPO P-MIDNIGHT OBSERVED. CONT ON IVF D5 1/2NS @100ML/HR AND SVEN WELL. PT SLEPT WELL DURING THE NIGHT WITHOUT ANY DISTRESS. ALL NEEDS ATTENDED TO. SAFETY MEASURES MAINTAINED.
--- NOTE | 2021-07-05 07:53 | NUR ---
CHECK PILOT OPENING NOTES PATIENT IS SLEEPING COMFORTABLY IN BED, ALERT AND ORIENTED X 4. NO COMPLAIN OF PAIN AND DISCOMFORT AT THIS TIME. IV LINE AT BRIANNA ML WITH ONGOING D5 1/2NS @100ML /HR INFUSING WELL, ON TELE MONITORING AND ON ROOM AIR SATURATING WELL. SAFETY MEASURES INITIATED: BED IN LOW POSITION, CALL LIGHTS WITHIN REACH. WILL CONTINUE TO MONITOR FOR DONNA.
[2021-07-05] MEDS: ENSURE CLEAR 237 ML LIQUID (MIX BERRY) PO SCH ×3 (08:00→16:24)
[2021-07-05 08:18] VITALS: BP 128/57
[2021-07-05] MEDS: LEVOTHYROXINE SODIUM 25 MCG TABLET PO SCH (08:42)
[2021-07-05] MEDS: PANTOPRAZOLE 40 MG VIAL IV SCH ×2 (08:42→17:36)
[2021-07-05] MEDS: CHOLECALCIFEROL 1,000 UNIT TABLET (VIT D3) PO SCH (08:42)
[2021-07-05] MEDS: MULTIVIT W/MINERALS 1 TAB TABLET PO SCH (08:42)
[2021-07-05] MEDS: ASCORBIC ACID 500 MG TABLET PO SCH (08:42)
[2021-07-05] MEDS: DIVALPROEX SODIUM 500 MG TABLET.DR PO SCH ×2 (08:42→17:36)
[2021-07-05] MEDS: MORPHINE SULFATE INJ 2 MG/ML DISP.SYRIN IV PRN ×2 (08:43→17:37)
[2021-07-05] MEDS: LEVETIRACETAM (250 MG) 250 MG TABLET PO SCH ×2 (08:43→21:02)
--- NOTE | 2021-07-05 10:02 | NUR ---
PT REFUSING PROCEDURE, LIVER BIOPSY, RN WILL NOTIFY PMD,DR WHITAKER AWARE, PT TOLD SHE WOULD NOT BE PUT TO SLEEP,BUT GIVEN MEDS FOR PAIN/ANXIETY, ECT FOR COMFORT
[2021-07-05] MEDS: POTASSIUM CL. PREMIX PERIPHER. 50 ML IV SCH ×4 (11:08→16:21)
--- NOTE | 2021-07-05 11:34 | NUR ---
MS RN NOTES PATIENT REFUSED TO DO THE CT NEEDLE LIVER BIOPSY.
[2021-07-05 16:18] VITALS: BP 119/51
[2021-07-05] MEDS ORDERED: PHYTONADIONE INJ 10 MG/1 ML AMPUL SQ SCH (18:00)
[2021-07-05] MEDS ORDERED: diphenhydrAMINE HCL 50 MG/ML VIAL IV ONE (18:00)
[2021-07-05] MEDS: ACETAMINOPHEN 325 MG TABLET PO ONE ×2 (18:10→18:43)
--- NOTE | 2021-07-05 19:40 | NUR ---
MS RN OPENING NOTES RECEIVED PATIENT RESTING IN BED COMFORTABLY, A/OX3, PATIENT ABLE TO MAKE NEEDS KNOWN; BREATHING EVEN AND UNLABORED, TOLERATING ROOM AIR WELL; NO SOB NOTED, NO DISTRESS NOTED; PATIENT DENIES PAIN; PATIENT CURRENTLY NPO; NOTED TO HAVE GENERALIZED SCRATCHES/RASHES ON BODY, ON ISOLATION PRECAUTIONS; BRIANNA MIDLINE NOTED, FLUSHING WELL; TOLERATING IVF WELL; PER AM SHIFT, PATIENT REFUSED CT NEEDLE BIOPSY; PATIENT SOMETIMES NON-COMPLIANT WITH MEDICATIONS; CHARGE NURSE AWARE; SAFETY PRECAUTIONS IMPLEMENTED; BED LOCKED IN LOW POSITION; SIDE RAILX2; CALL LIGHT WITHIN REACH; WILL CONT TO MONITOR
--- NOTE | 2021-07-05 19:54 | NUR ---
SUPERVISOR PHOSPHATIC FERTILIZER CLOSING NOTES PATIENT IS AWAKE IN BED COMFORTABLY. NO COMPLAIN OF PAIN AND DISCOMFORT AT THIS TIME. PATIENT IN ROOM AIR. SAFETY MEASURES INITIATED: BED IN LOW POSITION, CALL LIGHTS WITHIN REACH. PATIENT IS IN CLEAR LIQUID DIET. PATIENT WAS SCHEDULED FOR CT LIVER NEEDLE BIOPSY THIS MORNING, AND SHE REFUSED TO SIGN THE CONSENT FORM AND PROCEDURE. IV LINE AT BRIANNA ML WITH ONGOING NS @100ML /HR. PATIENT HAS GENERALIZED SCRATCH CAREY AND RASHES ALL OVER HER BODY. PATIENT KEPT CLEAN AND DRY; ALL NEEDS MET. WILL ENDORSE TO INCOMING SHIFT FOR DONNA.
[2021-07-05 20:00] VITALS: BP 115/61
[2021-07-05] MEDS: MIRTAZAPINE 15 MG TABLET PO SCH (21:02)
[2021-07-05] MEDS: DONEPEZIL 5 MG TABLET PO SCH (21:02)
--- NOTE | 2021-07-05 23:59 | NUR ---
MS RN NOTES DR. STEIN ORDERED 2 UNITS FFP AND VITAMIN K INJECTION ONCE FOR PATIENT IF UNDER-GOING BIOPSY PROCEDURE IN AM; DR. STEIN INFORMED PATIENT HAS BEEN REFUSING TESTS/PROCEDURES; PER DR. STEIN "ADMINISTER VIT K INJECTION, NO NEED FOR PLASMA TRANSFUSION IF PATIENT REFUSING PROCEDURE". PATIENT ASKED TWICE REGARDING BIOPSY PROCEDURE IN AM; PATIENT REFUSING, PATIENT STATED SHE DOES NOT WANT TO HAVE PROCEDURE DONE, OK FOR VIT K INJECTION; ORDERS RENDERED AND CARRIED OUT; CHARGE NURSE MADE AWARE
--- NOTE | 2021-07-06 06:59 | NUR ---
MS RN CLOSING NOTES PATIENT RESTING IN BED COMFORTABLY, A/OX3, PATIENT ABLE TO MAKE NEEDS KNOWN; BREATHING EVEN AND UNLABORED, TOLERATING ROOM AIR WELL; NO SOB NOTED, NO DISTRESS NOTED; PATIENT DENIES PAIN; PATIENT CURRENTLY NPO; NOTED TO HAVE GENERALIZED SCRATCHES/RASHES ON BODY, ON ISOLATION PRECAUTIONS; BRIANNA MIDLINE NOTED, FLUSHING WELL; TOLERATING IVF WELL; PER AM SHIFT, PATIENT STILL REFUSED CT NEEDLE BIOPSY; ALL NEEDS RENDERED; SAFETY PRECAUTIONS IMPLEMENTED; BED LOCKED IN LOW POSITION; SIDE RAILX2; CALL LIGHT WITHIN REACH; WILL ENDORSE DONNA TO ONCOMING SHIFT
--- NOTE | 2021-07-06 07:30 | NUR ---
PICKLING GRADER OPENING NOTES RECEIVED PATIENT IS SLEEPING COMFORTABLY IN BED, ALERT AND ORIENTED X 4. NO COMPLAIN OF PAIN AND DISCOMFORT AT THIS TIME. IV LINE AT BRIANNA ML WITH ONGOING D5 1/2NS @100ML /HR INFUSING WELL, ON TELE MONITORING AND ON ROOM AIR SATURATING WELL. SAFETY MEASURES INITIATED: BED IN LOW POSITION, CALL LIGHTS WITHIN REACH. WILL CONTINUE TO MONITOR FOR DONNA.
[2021-07-06] MEDS: ENSURE CLEAR 237 ML LIQUID (MIX BERRY) PO SCH ×3 (07:40→16:49)
[2021-07-06 07:41] LABS: CALCIUM, SERUM 8.4 mg/dL (8.5-10.1); CARBON DIOXIDE 26 mmol/L (21-32); CHLORIDE 106 mmol/L (98-107); CREATININE 0.4 mg/dL (0.6-1.3); GLUCOSE 59 mg/dL (74-106); POTASSIUM 3.9 mmol/L (3.5-5.1); SODIUM SERUM 141 mmol/L (136-145); UREA NITROGEN, BLOOD 2 mg/dL (7-18)
[2021-07-06 07:44] LABS: BASOPHILS # (AUTO) 0.1 K/uL (0.0-0.2); BASOPHILS % (AUTO) 1.1 % (0.0-2.0); HEMATOCRIT 30 % (33-45); HEMOGLOBIN 9.6 g/dL (11.5-14.8); LYMPHOCYTES # (AUTO) 1.3 K/uL (0.8-4.8); LYMPHOCYTES % (AUTO) 27.9 % (20.0-44.0); MEAN CORPUSCULAR HGB CONC 32 g/dl (31.0-36.0); MEAN CORPUSCULAR VOLUME 77 fL (82-100); MONOCYTES # (AUTO) 0.4 K/uL (0.1-1.30); NEUTROPHILS # (AUTO) 1.7 K/uL (1.8-8.9); PLATELET COUNT (AUTO) 325 K/uL (150-450); RED BLOOD CELL COUNT(AUTO) 3.92 MIL/uL (4.0-5.2); WHITE BLOOD COUNT (AUTO) 4.7 K/uL (4.3-11.0)
[2021-07-06 08:00] VITALS: BP 123/60
[2021-07-06] MEDS: DIVALPROEX SODIUM 500 MG TABLET.DR PO SCH ×2 (08:01→17:18)
[2021-07-06] MEDS: ASCORBIC ACID 500 MG TABLET PO SCH (08:01)
[2021-07-06] MEDS: MULTIVIT W/MINERALS 1 TAB TABLET PO SCH (08:01)
[2021-07-06] MEDS: LEVETIRACETAM (250 MG) 250 MG TABLET PO SCH ×2 (08:01→21:04)
[2021-07-06] MEDS: CHOLECALCIFEROL 1,000 UNIT TABLET (VIT D3) PO SCH (08:01)
[2021-07-06] MEDS: LEVOTHYROXINE SODIUM 25 MCG TABLET PO SCH (08:01)
[2021-07-06] MEDS: PANTOPRAZOLE 40 MG VIAL IV SCH ×2 (08:01→17:18)
[2021-07-06] MEDS: MORPHINE SULFATE INJ 2 MG/ML DISP.SYRIN IV PRN ×2 (08:02→17:18)
[2021-07-06 09:19] LABS: EOSINOPHILS % (MANUAL) 32 % (0-4); LYMPHOCYTES % (MANUAL) 26 % (16-48); MONOCYTES % (MANUAL) 7 % (0-11.0); NEUTROPHILS % (MANUAL) 35 (42-76)
[2021-07-06 16:00] VITALS: BP 102/54
--- NOTE | 2021-07-06 19:34 | NUR ---
MS RN OPENING NOTE RECEIVED PT AWAKE IN BED. A/O X3 AND ABLE TO MAKE NEEDS KNOWN. PT STABLE ON ROOM AIR. NO SOB OR S/S OF RESPIRATORY DISTRESS. BREATHING EVEN AND UNLABORED. IV ACCESS BRIANNA MIDLINE, INTACT AND PATENT, RUNNING D5 1/2 NS @ 100 ML/HR. SAFETY PRECAUTIONS IN PLACE. BED IN LOWEST LOCKED POSITION, HOB ELEVATED, SIDE RAILS UP X3, AND CALL LIGHT AND TABLE WITHIN REACH. ALL NEEDS MET AT THIS TIME.
[2021-07-06 20:00] VITALS: BP 102/45
[2021-07-06] MEDS: DONEPEZIL 5 MG TABLET PO SCH (21:04)
[2021-07-06] MEDS: MIRTAZAPINE 15 MG TABLET PO SCH (21:04)
[2021-07-07 05:53] LABS: BASOPHILS # (AUTO) 0.1 K/uL (0.0-0.2); BASOPHILS % (AUTO) 1.3 % (0.0-2.0); EOSINOPHILS % (AUTO) 20.8 % (0.0-6.0); HEMATOCRIT 32 % (33-45); HEMOGLOBIN 10.1 g/dL (11.5-14.8); LYMPHOCYTES # (AUTO) 1.4 K/uL (0.8-4.8); LYMPHOCYTES % (AUTO) 28.8 % (20.0-44.0); MEAN CORPUSCULAR HGB CONC 32 g/dl (31.0-36.0); MEAN CORPUSCULAR VOLUME 77 fL (82-100); MONOCYTES # (AUTO) 0.4 K/uL (0.1-1.30); MONOCYTES % (AUTO) 8.1 % (2.0-12.0); PLATELET COUNT (AUTO) 308 K/uL (150-450); RED BLOOD CELL COUNT(AUTO) 4.18 MIL/uL (4.0-5.2)
[2021-07-07 06:09] LABS: CALCIUM, SERUM 8.5 mg/dL (8.5-10.1); CARBON DIOXIDE 27 mmol/L (21-32); CHLORIDE 105 mmol/L (98-107); CREATININE 0.3 mg/dL (0.6-1.3); GLUCOSE 51 mg/dL (74-106); POTASSIUM 3.7 mmol/L (3.5-5.1); SODIUM SERUM 141 mmol/L (136-145); UREA NITROGEN, BLOOD 3 mg/dL (7-18)
--- NOTE | 2021-07-07 06:33 | NUR ---
MS RN CLOSING NOTE PT RESTING IN BED, EYES CLOSED, EASILY AROUSABLE. A/O X3 AND ABLE TO MAKE NEEDS KNOWN. PT STABLE ON ROOM AIR. NO SOB OR S/S OF RESPIRATORY DISTRESS. BREATHING EVEN AND UNLABORED. IV ACCESS BRIANNA MIDLINE, INTACT AND PATENT, RUNNING D5 1/2 NS @ 100 ML/HR. ALL DUE MEDS GIVEN ORDERED. SAFETY PRECAUTIONS IN PLACE AT ALL TIMES. BED IN LOWEST LOCKED POSITION, HOB ELEVATED, SIDE RAILS UP X3, AND CALL LIGHT AND TABLE WITHIN REACH. ALL NEEDS MET AT THIS TIME AND WILL ENDORSE TO ONCOMING NURSE FOR DONNA.
[2021-07-07] MEDS: LEVOTHYROXINE SODIUM 25 MCG TABLET PO SCH (07:39)
--- NOTE | 2021-07-07 07:53 | NUR ---
RN OPENING NOTE PATIENT AWAKE IN BED RESTING, A/O X3. NO S/S OF PAIN NOTED AT THIS TIME. ON ROOM AIR, NO DISTRESS OR SHORTNESS OF BREATH NOTED. IV ACCESS BRIANNA MIDLINE, INTACT, PATENT AND FLUSHING WELL. FALL AND SAFETY MEASURES IN PLACE, BED ALARM ON BED IN LOW AND LOCK POSITION, CALL LIGHT AND TABLE WITHIN EASY REACH, SIDE RAILS UP X2. WILL CONTINUE TO MONITOR.
[2021-07-07 08:00] VITALS: BP 129/55
[2021-07-07] MEDS: ENSURE CLEAR 237 ML LIQUID (MIX BERRY) PO SCH ×3 (08:00→16:57)
[2021-07-07] MEDS: PANTOPRAZOLE 40 MG VIAL IV SCH ×2 (08:36→16:56)
[2021-07-07] MEDS: MULTIVIT W/MINERALS 1 TAB TABLET PO SCH (08:36)
[2021-07-07] MEDS: LEVETIRACETAM (250 MG) 250 MG TABLET PO SCH ×2 (08:36→21:13)
[2021-07-07] MEDS: DIVALPROEX SODIUM 500 MG TABLET.DR PO SCH ×2 (08:37→16:56)
[2021-07-07] MEDS: ASCORBIC ACID 500 MG TABLET PO SCH (08:37)
[2021-07-07] MEDS: CHOLECALCIFEROL 1,000 UNIT TABLET (VIT D3) PO SCH (08:37)
[2021-07-07 13:16] LABS: EOSINOPHILS % (MANUAL) 19 % (0-4); LYMPHOCYTES % (MANUAL) 25 % (16-48); MONOCYTES % (MANUAL) 7 % (0-11.0); NEUTROPHILS % (MANUAL) 49 (42-76)
--- NOTE | 2021-07-07 13:40 | NUR ---
RN NOTE NOTICED PATIENT CT NEEDLE BIOPSY WAS CANCELLED, DOCTOR STEIN WAS CALLED TO CLARIFY ORDER. DR STEIN ORDER CT NEEDLE BIOPSY, ORDER WAS PLACED, PER DOCTOR STEIN PATIENT DO NOT NEED FFP PRIOR TO PROCEDURE SINCE PATIENT INR IS 1.17.
[2021-07-07] MEDS: IV D5/0.45 NACL 1,000 ML IV PRN (14:48)
[2021-07-07] MEDS: MORPHINE SULFATE INJ 2 MG/ML DISP.SYRIN IV PRN (15:01)
[2021-07-07 16:00] VITALS: BP 120/59
--- NOTE | 2021-07-07 19:31 | NUR ---
RN CLOSING NOTE PATIENT AWAKE IN BED RESTING, A/O X3. NO S/S OF PAIN NOTED AT THIS TIME. ON ROOM AIR, NO DISTRESS OR SHORTNESS OF BREATH NOTED. IV ACCESS BRIANNA MIDLINE D5 1/2 NS @ 100ML/HR, INTACT, PATENT AND FLUSHING WELL. ALL SCHEDULE MEDICATION ADMINISTERED. PATIENT WAS TURNED AND REPOSITIONED PER PROTOCOL. FALL AND SAFETY MEASURES IN PLACE, BED ALARM ON BED IN LOW AND LOCK POSITION, CALL LIGHT AND TABLE WITHIN EASY REACH, SIDE RAILS UP X2. WILL ENDORSE TO DIRECTOR SKILLS.
[2021-07-07 20:00] VITALS: BP 114/48
[2021-07-07] MEDS: DONEPEZIL 5 MG TABLET PO SCH (21:13)
[2021-07-07] MEDS: MIRTAZAPINE 15 MG TABLET PO SCH (21:14)
[2021-07-08] MEDS: IV D5/0.45 NACL 1,000 ML IV PRN (05:49)
--- NOTE | 2021-07-08 06:38 | NUR ---
MS RN CLOSING NOTE PT RESTING IN BED, EYES CLOSED, EASILY AROUSABLE. A/O X3 AND ABLE TO MAKE NEEDS KNOWN. PT STABLE ON ROOM AIR. NO SOB OR S/S OF RESPIRATORY DISTRESS. BREATHING EVEN AND UNLABORED. IV ACCESS BRIANNA MIDLINE, INTACT AND PATENT, RUNNING NS 3% @ 25 ML/HR. ALL DUE MEDS GIVEN ORDERED. RIGHT GROIN DRESSING C/D/I. NO S/S OF BLEEDING. STILL PENDING 1 BAG OF PRBC, WILL ENDORSE TO ONCOMING NURSE TO FOLLOW UP WHEN BAG IS READY. SAFETY PRECAUTIONS IN PLACE AT ALL TIMES. BED IN LOWEST LOCKED POSITION, HOB ELEVATED, SIDE RAILS UP X3, AND CALL LIGHT AND TABLE WITHIN REACH. ALL NEEDS MET AT THIS TIME AND WILL ENDORSE TO ONCOMING NURSE FOR DONNA. Addendum: 07/08/21 at 0644 by ALFRED MARKHAM RN WRONG PATIENT, PLEASE DISREGARD
[2021-07-08 06:57] LABS: CALCIUM, SERUM 7.9 mg/dL (8.5-10.1); CARBON DIOXIDE 30 mmol/L (21-32); CHLORIDE 105 mmol/L (98-107); CREATININE 0.4 mg/dL (0.6-1.3); GLUCOSE 83 mg/dL (74-106); SODIUM SERUM 141 mmol/L (136-145); UREA NITROGEN, BLOOD 3 mg/dL (7-18)
[2021-07-08] MEDS: ENSURE CLEAR 237 ML LIQUID (MIX BERRY) PO SCH ×3 (08:00→17:00)
[2021-07-08 08:49] VITALS: BP 113/59
[2021-07-08] MEDS: CHOLECALCIFEROL 1,000 UNIT TABLET (VIT D3) PO SCH (08:57)
[2021-07-08] MEDS: ASCORBIC ACID 500 MG TABLET PO SCH (08:57)
[2021-07-08] MEDS: MULTIVIT W/MINERALS 1 TAB TABLET PO SCH (08:57)
[2021-07-08] MEDS: PANTOPRAZOLE 40 MG VIAL IV SCH ×2 (08:57→16:29)
[2021-07-08] MEDS: DIVALPROEX SODIUM 500 MG TABLET.DR PO SCH ×2 (08:57→16:30)
[2021-07-08] MEDS: POTASSIUM CL. PREMIX PERIPHER. 50 ML IV SCH ×4 (08:57→13:45)
[2021-07-08] MEDS: LEVETIRACETAM (250 MG) 250 MG TABLET PO SCH (08:57)
[2021-07-08] MEDS: LEVOTHYROXINE SODIUM 25 MCG TABLET PO SCH (08:59)
[2021-07-08] MEDS ORDERED: MIDO5TAB4 PO (09:23)
[2021-07-08] MEDS ORDERED: PANT40TA2 PO (09:23)
--- NOTE | 2021-07-08 10:15 | NUR ---
RN NOTE PATIENT IS NOT IN HER ROOM SHE WENT FOR A PROCEDURE (CT NEEDLE BIOPSY).
--- NOTE | 2021-07-08 12:00 | NUR ---
RN NOTE PATIENT CAME BACK FROM CT NEEDLE BIOPSY, PATIENT STABLE, TOLERATED PROCEDURE WELL. WILL CONTINUE TO MONITOR.
[2021-07-08 15:48] VITALS: BP 135/57
--- NOTE | 2021-07-08 17:10 | NUR ---
ACCOUNT MANAGEMENT ASSISTANT NOTE PATIENT DISCHARGE IN STABLE MEDICAL CONDITION. A/O X4. V/S TAKEN, STABLE AND RECORDED. NO IV ACCESS. PATIENT SKIN ASSESSMENT DONE, PICTURES WAS TAKEN EXCEPT FOR PICTURES OF SACRUM PATIENT REFUSED AND STATED, "NO MORE PICTURES, I DO NOT WANT TO TURN, MY LEG HURT WHEN I MOVE." NAME ARM BAND REMOVED. ALL BELONGINGS CHECKED AND DISCHARGE INSTRUCTIONS GIVEN TO PATIENT AND NURSE SATYA AT [facility], VERBALIZED UNDERSTANDING. PATIENT LEFT UNIT VIA GURNEY WITH NO SIGNS OF DISTRESS, ACCOMPANIED BY PARAMEDICS. CHARGE NURSE AWARE OF DISCHARGE.
== END 2021-07-08 17:58 | DRG 872 ==
LOC: ER 10:16 → TRANSITION 14:46 → MED 19:36 → TELE 06-25 01:47 → MED 06-30 09:54
PROVIDERS: ADMIT Internal Medicine; ATTEND Internal Medicine
PROC: 30233N1 Transfusion of Nonautologous Red Blood Cells into Peripheral Vein, Percutaneous Approach (ICD-10-PCS; principal; 2021-06-24)
PROC: 05HB33Z Insertion of Infusion Device into Right Basilic Vein, Percutaneous Approach (ICD-10-PCS; 2021-06-24)
PROC: 05H933Z Insertion of Infusion Device into Right Brachial Vein, Percutaneous Approach (ICD-10-PCS; 2021-06-27)
PROC: 0FB03ZX Excision of Liver, Percutaneous Approach, Diagnostic (ICD-10-PCS; 2021-07-08)
DX: A41.9 Sepsis, unspecified organism (principal); D62 Acute posthemorrhagic anemia; K92.2 Gastrointestinal hemorrhage, unspecified; E87.1 Hypo-osmolality and hyponatremia; K51.219 Ulcerative (chronic) proctitis with unspecified complications; J90 Pleural effusion, not elsewhere classified; J98.11 Atelectasis; C19 Malignant neoplasm of rectosigmoid junction; C78.7 Secondary malignant neoplasm of liver and intrahepatic bile duct; D50.9 Iron deficiency anemia, unspecified; K52.9 Noninfective gastroenteritis and colitis, unspecified; R65.20 Severe sepsis without septic shock; Z20.822 Contact with and (suspected) exposure to COVID-19; F02.80 Dementia in other diseases classified elsewhere, unspecified severity, without behavioral disturbance, psychotic disturbance, mood disturbance, and anxiety; G30.9 Alzheimer's disease, unspecified; Z86.73 Personal history of transient ischemic attack (TIA), and cerebral infarction without residual deficits; Z86.16 Personal history of COVID-19; K21.9 Gastro-esophageal reflux disease without esophagitis; N31.9 Neuromuscular dysfunction of bladder, unspecified; M19.90 Unspecified osteoarthritis, unspecified site; F39 Unspecified mood [affective] disorder; F41.9 Anxiety disorder, unspecified; F31.9 Bipolar disorder, unspecified; E03.9 Hypothyroidism, unspecified; L30.9 Dermatitis, unspecified; H35.30 Unspecified macular degeneration; Z79.82 Long term (current) use of aspirin; Z79.899 Other long term (current) drug therapy; E83.42 Hypomagnesemia; E86.1 Hypovolemia; E88.09 Other disorders of plasma-protein metabolism, not elsewhere classified; I10 Essential (primary) hypertension; F29 Unspecified psychosis not due to a substance or known physiological condition; G40.909 Epilepsy, unspecified, not intractable, without status epilepticus; R91.1 Solitary pulmonary nodule; E27.8 Other specified disorders of adrenal gland; E87.6 Hypokalemia; Z53.20 Procedure and treatment not carried out because of patient's decision for unspecified reasons; M89.8X9 Other specified disorders of bone, unspecified site; K80.20 Calculus of gallbladder without cholecystitis without obstruction
CPT/HCPCS: 36410; 36415; 71045-TC; 71250-TC; 74170-TC; 74183; 80048-TC; 80053-TC; 80076-TC; 82105; 82378; 82728-TC; 82784; 82945-TC; 82962-TC; 83540-TC; 83690-TC; 83735-TC; 84100-TC; 84155; 84165; 84439-TC; 84443-TC; 85025-TC; 85027-TC; 85385-TC; 85610-TC; 85730-TC; 86301; 86334; 86850-TC; 87040-TC; 87081-TC; 94799-TC; 97110-TC; 97530-TC; 97535-TC; A4216; A9575; C9113; C9803; G0378; J0456; J0692; J0713; J1200; J2270; J2405; J2543; J2916; J3430; J3475; J3480; J3490; J7030; J7040; J7042; J7050; J7060; P9016; P9047; Q9967

== ENCOUNTER 2022-08-06 10:27 | Inpatient (IN) | payer MEDICARE, OTHER ==
[~2022-08-06] VITALS: Ht 170.2 cm; Wt 65.3 kg
[~2022-08-06 10:27] MED LIST: ASCO500C17 PO; ASPI-1169 PO; CHOL200013 PO; DIVA500T2 PO; DONE5TAB7 PO; LEVE1000 PO; LEVO25TA7 PO; MIDO5TAB4 PO; MIRT-121 PO; MULT-439 PO; PANT40TA2 PO; VIT1CAPS44 PO
--- NOTE | 2022-08-06 10:50 | NUR ---
GARY FROM [facility] FOR DIFFICULTY SWALLOWING SINCE YESTERDAY.
[2022-08-06 12:22] LABS: BASOPHILS # (AUTO) 0.1 K/uL (0.0-0.2); BASOPHILS % (AUTO) 0.5 % (0.0-2.0); EOSINOPHILS % (AUTO) 0.4 % (0.0-6.0); HEMATOCRIT 29 % (33-45); LYMPHOCYTES # (AUTO) 1.7 K/uL (0.8-4.8); LYMPHOCYTES % (AUTO) 14.3 % (20.0-44.0); MEAN CORPUSCULAR HGB CONC 32 g/dl (31.0-36.0); MEAN CORPUSCULAR VOLUME 85 fL (82-100); MONOCYTES % (AUTO) 17.4 % (2.0-12.0); NEUTROPHILS # (AUTO) 7.8 K/uL (1.8-8.9); NEUTROPHILS % (AUTO) 67.4 % (43.0-81.0); PLATELET COUNT (AUTO) 230 K/uL (150-450); RED BLOOD CELL COUNT(AUTO) 3.38 MIL/uL (4.0-5.2); WHITE BLOOD COUNT (AUTO) 11.6 K/uL (4.3-11.0)
[2022-08-06 12:29] LABS: CALCIUM, SERUM 8.5 mg/dL (8.5-10.1); CREATININE 0.6 mg/dL (0.6-1.3); POTASSIUM 3.2 mmol/L (3.5-5.1)
[2022-08-06] MEDS ORDERED: IV NS 0.9% 250 ML IV ONE (13:05)
[2022-08-06] MEDS ORDERED: IOHEXOL-300 100 ML VIAL IV ONE (13:05)
--- NOTE | 2022-08-06 14:40 | NUR ---
[facility] CALLED ULTRASOUND TESTER PAGED.
--- NOTE | 2022-08-06 14:47 | NUR ---
ROOM 309-1 ,ADMITTING AWARE
--- NOTE | 2022-08-06 15:15 | NUR ---
REPORT GIVEN TO SAURABH DOWD
[2022-08-06] MEDS ORDERED: IV NS 0.9% 1,000 ML IV PRN (15:30)
[2022-08-06] MEDS ORDERED: ONDANSETRON HCL/PF 4 MG/2 ML VIAL IVP PRN (15:30)
[2022-08-06] MEDS ORDERED: ENOXAPARIN SODIUM 40 MG/0.4 ML DISP.SYRIN SQ SCH (15:30)
[2022-08-06] MEDS ORDERED: ACETAMINOPHEN 325 MG TABLET PO PRN (15:30)
--- NOTE | 2022-08-06 15:56 | NUR ---
MOVED TO INPATIENT ROOM SAFELY PER PROTOCOL
[2022-08-06] MEDS: POTASSIUM CL. PREMIX PERIPHER. 50 ML IV SCH ×2 (18:20→19:33)
[2022-08-06] MEDS: PANTOPRAZOLE 40 MG VIAL IV SCH (18:20)
--- NOTE | 2022-08-06 19:45 | NUR ---
MS RN OPENING NOTE PATIENT SLEEPING IN BED, EASILY AWAKENED, ALERT/ORIENTED X 2. PATIENT STABLE ON RA, NO S/S OF DISTRESS OR SOB NOTED, BREATHING EVEN AND UNLABORED. IV ACCESS ON RIGHT FOREARM #22G INTACT AND INFUSING NS @ 75 ML/HR AND KCL 10 MEQ @ 30 ML/HR. PATIENT NPO AT THIS TIME, AWAITING SWALLOW EVAL, HAS DIFFICULTY SWALLOWING. SAFETY MEASURES IN PLACE: CALL LIGHT WITHIN REACH, SIDE RAILS UP X 3, BED LOCKED IN LOWEST POSITION, BED ALARM ON. WILL CONTINUE TO MONITOR PATIENT
[2022-08-06 20:00] VITALS: BP 118/66; TEMP 97.8
[2022-08-06 20:24] VITALS: BP 117/73; TEMP 98.2
--- NOTE | 2022-08-06 20:30 | NUR ---
MS RN NOTE PLACED PATIENT ON 2 LPM OF O2 VIA NASAL CANNULA, SPO2 WAS 91% ON ROOM AIR
[2022-08-06] MEDS ORDERED: MAGN400T26 PO (21:23)
[2022-08-06] MEDS ORDERED: ACET-2605 PO (21:23)
[2022-08-06] MEDS ORDERED: FERR325T23 PO (21:23)
[2022-08-06] MEDS ORDERED: LOPE2TAB23 PO (21:23)
[2022-08-06] MEDS ORDERED: AMIN30LI2 PO (21:23)
[2022-08-06] MEDS ORDERED: norco (21:23)
[2022-08-06] MEDS ORDERED: CAPE500T15 PO (21:23)
[2022-08-06] MEDS ORDERED: MEGE400O5 PO (21:23)
[2022-08-06] MEDS ORDERED: NYSTATIN MT (21:23)
[2022-08-06] MEDS ORDERED: TRAM50TA2 PO (21:23)
[2022-08-06] MEDS ORDERED: PROC10TA13 PO (21:23)
[2022-08-06] MEDS ORDERED: LOPE2CAP14 PO (21:23)
[2022-08-06] MEDS ORDERED: REGORAFENIB (21:23)
[2022-08-06] MEDS: ENOXAPARIN SODIUM 40 MG/0.4 ML DISP.SYRIN SQ SCH (21:52)
--- NOTE | 2022-08-06 22:40 | NUR ---
MS RN NOTE PATIENT C/O 09/14 ABDOMINAL PAIN, CONTACTED DATA COORDINATOR GAMING CASHIER OFELIA ESQUEDA WITH ORDER FOR PRN MORPHINE 2 MG IV Q3H, ORDER CARRIED OUT
[2022-08-06] MEDS: MORPHINE SULFATE INJ 2 MG/ML DISP.SYRIN IV PRN (22:45)
--- NOTE | 2022-08-06 23:00 | NUR ---
MS RN NOTE IV FLUIDS DISCONTINUED. DISCONNECTED IVF FROM PATIENT
--- NOTE | 2022-08-07 06:00 | NUR ---
MS RN NOTE PER MD ORDER, STRAIGHT CATH PATIENT FOR URINE SAMPLE FOR URINE CX AND URINALYSIS, URINE SAMPLE SENT TO LAB
[2022-08-07] MEDS: MORPHINE SULFATE INJ 2 MG/ML DISP.SYRIN IV PRN (06:10)
--- NOTE | 2022-08-07 06:15 | NUR ---
MS RN NOTE PATIENT C/O 09/14 ABDOMINAL AND LEFT HIP PAIN, PRN MORPHINE 2 MG IV Q3H GIVEN ORDERED
[2022-08-07 06:30] LABS: BASOPHILS # (AUTO) 0.1 K/uL (0.0-0.2); EOSINOPHILS % (AUTO) 0.6 % (0.0-6.0); HEMATOCRIT 27 % (33-45); HEMOGLOBIN 8.5 g/dL (11.5-14.8); LYMPHOCYTES # (AUTO) 1.8 K/uL (0.8-4.8); LYMPHOCYTES % (AUTO) 16.8 % (20.0-44.0); MEAN CORPUSCULAR HGB CONC 32 g/dl (31.0-36.0); MEAN CORPUSCULAR VOLUME 85 fL (82-100); MONOCYTES # (AUTO) 2.3 K/uL (0.1-1.30); MONOCYTES % (AUTO) 22.3 % (2.0-12.0); NEUTROPHILS # (AUTO) 6.2 K/uL (1.8-8.9); NEUTROPHILS % (AUTO) 59.3 % (43.0-81.0); PLATELET COUNT (AUTO) 268 K/uL (150-450); RED BLOOD CELL COUNT(AUTO) 3.12 MIL/uL (4.0-5.2); WHITE BLOOD COUNT (AUTO) 10.4 K/uL (4.3-11.0)
[2022-08-07 06:48] LABS: BILIRUBIN,URINE 1+ (NEGATIVE); COLOR,URINE DARK YELLOW (YELLOW); LEUKOCYTE ESTERASE ,URINE 1+ (NEGATIVE); NITRITE, URINE POSITIVE (NEGATIVE); PROTEIN,URINE TRACE mg/dl (NEGATIVE); UGLUCOSE NEGATIVE (NEGATIVE); UROBILINOGEN,URINE >=8.0 EU/dL (0.2)
[2022-08-07 06:53] LABS: CALCIUM, SERUM 8.7 mg/dL (8.5-10.1); CARBON DIOXIDE 23 mmol/L (21-32); CHLORIDE 100 mmol/L (98-107); CREATININE 0.4 mg/dL (0.6-1.3); GLUCOSE 83 mg/dL (74-106); MAGNESIUM 2.2 mg/dL (1.8-2.4); PHOSPHORUS 3.7 mg/dL (2.5-4.9); POTASSIUM 3.6 mmol/L (3.5-5.1); SODIUM SERUM 134 mmol/L (136-145); UREA NITROGEN, BLOOD 13 mg/dL (7-18)
[2022-08-07 07:00] VITALS: BP 108/63; TEMP 98.1
[2022-08-07 07:00] LABS: BACTERIA,URINE MAN /HPF (None Seen); SQUAMOUS EPITHELIAL CELL,UR Few /HPF (None Seen); WBC,URINE TOO NUMEROUS TO COUN /HPF (0-3)
--- NOTE | 2022-08-07 07:16 | NUR ---
MS RN OPENING NOTE RECEIVED PATIENT IN BED ASLEEP BUT EASILY WOKEN UP. PATIENT IS ALERT/ORIENTED X 2, ANSWERS APPROPRIATELY. PATIENT ON OXYGEN AT 2LPM VIA NASAL CANULA WITH EQUAL AND UNLABORED BREATHING, WITH NO SIGNS OF RESPIRATORY DISTRESS. WITH IV ACCESS ON RIGHT FOREARM #22G PATENT AND INTACT. PATIENT NOTED TO HAVE SOME DISCOLORATION ON LIPS LIKE DRY BRICK RED CRUST BUT REFUSED TO HAVE MOUTH CHECKED AT THIS TIME. PROVIDED WITH CALM AND QUIET ENVIRONMENT. SAFETY MEASURES IN PLACE: CALL LIGHT WITHIN REACH, SIDE RAILS UP X 3, BED LOCKED IN LOWEST POSITION, BED ALARM ON. WILL CONTINUE WITH PLAN OF CARE.
--- NOTE | 2022-08-07 07:38 | NUR ---
MS RN CLOSING NOTE PATIENT SLEEPING IN BED, EASILY AWAKENED, ALERT/ORIENTED X 2. PATIENT STABLE ON RA, NO S/S OF DISTRESS OR SOB NOTED, BREATHING EVEN AND UNLABORED. IV ACCESS ON RIGHT FOREARM #22G INTACT AND SALINE LOCKED. MEDICATIONS GIVEN ORDERED, PT NEEDS MET THROUGHOUT SHIFT. SAFETY MEASURES IN PLACE: CALL LIGHT WITHIN REACH, SIDE RAILS UP X 3, BED LOCKED IN LOWEST POSITION, BED ALARM ON. ENDORSED TO DAYSHIFT RN FOR CONTINUITY OF CARE
[2022-08-07 08:01] LABS: HDL CHOLESTEROL 12 mg/dL (40-60); LDL 109 mg/dL (0-99); TRIGLYCERIDES 138 mg/dL (30-150)
[2022-08-07 08:24] LABS: CHOLESTEROL 153 mg/dL (<200)
[2022-08-07] MEDS: PANTOPRAZOLE 40 MG VIAL IV SCH (08:40)
--- NOTE | 2022-08-07 10:40 | NUR ---
MS RN NOTE SEEN BY SPEECH THERAPIST, SUGGESTED TO KEEP PATIENT ON NPO. NOTED SOME BLOOD IN THE MOUTH MD AWARE. ORAL CARE DONE, BUT VERY LIMITED PATIENT DOESN'T WANT TO OPEN MOUTH FULLY. PATIENT COMPLAINS OF PAIN ON THE MANDIBLE WITH XRAY DONE PREVIOUSLY. COMFORT MEASURES PROVIDED.
--- NOTE | 2022-08-07 11:40 | NUR ---
WOUND CARE CONSULT: PT PRESENTS WITH SCANT AMOUNT OF DRIED BLOOD ON HER MOUTH, SACRAL AND BILATERAL HEEL INTACT DEEP TISSUE INJURIES, ALL PRESENT ON ADMISSION. DISCUSSED SKIN PROTECTION WITH NURSING STAFF. PT STATES HAS BEEN HAVING SOME BLOOD IN HER MOUTH AFTER COUGHING. RN DISCUSSING WITH PMD. PT IS INCONTINENT. MD IN AGREEMENT WITH PLAN OF CARE.
--- NOTE | 2022-08-07 11:50 | NUR ---
MS RN NOTE SEEN BY HOSPITALIST SEVERINO
[2022-08-07] MEDS: LIDOCAINE VISCOUS 2% UD 15 ML UDC MM SCH ×2 (12:00→20:43)
[2022-08-07] MEDS ORDERED: Z GUARD REMEDY 4 OZ OINT TP PRN (12:00)
[2022-08-07] MEDS: CEFTRIAXONE 1 G in IV D5W 50 ML IV SCH (12:08)
[2022-08-07] MEDS: IV D5/ 0.9% NACL 1,000 ML IV PRN (12:32)
[2022-08-07 13:21] LABS: BASOPHILS % (MANUAL) 0 % (0.0-2.0); EOSINOPHILS % (MANUAL) 0 % (0-4); LYMPHOCYTES % (MANUAL) 18 % (16-48); MONOCYTES % (MANUAL) 20 % (0-11.0); NEUTROPHILS % (MANUAL) 62 (42-76)
[2022-08-07 13:34] LABS: THYROID STIMULATING HORMONE 11.161 uIU/mL (0.358-3.74)
--- NOTE | 2022-08-07 14:10 | NUR ---
MS RN NOTE SEEN BY ROCAEL GARCIA
[2022-08-07] MEDS ORDERED: IV NS 0.9% 250 ML IV ONE (14:51)
[2022-08-07] MEDS ORDERED: IOHEXOL-300 100 ML VIAL IV ONE (14:51)
[2022-08-07] MEDS ORDERED: CT SWABBABLE VALVE TRANS SET 1 EA INFUS.SET MC ONE (14:51)
--- NOTE | 2022-08-07 15:20 | NUR ---
MS RN NOTE PATIENT FOR CT SCAN WITH CONTRAST ORDERED. PATIENT NOTED A/O X3, COHERENT AND CONSENTED FOR CT SCAN BUT UNABLE TO USE HER HAND FOR WRITING. VERBAL CONSENT SECURED AND WITNESSED BY NURSE JASSI, CONSENT ATTACHED TO CHART. CALLED SON IN LAW, OLIVE AND GRANDDAUGHTER JUDIT, ACCORDING TO THEM, PATIENT HAVE LUCID INTERVALS AND ABLE TO GIVE CONSENT BUT FAMILY OKAY WITH THE PROCEDURE WELL. GIVEN SOME UPDATE AND PLAN. VERBALIZED UNDERSTANDING AND APPRECIATION.
[2022-08-07 16:00] VITALS: BP 124/72; TEMP 98.1
--- NOTE | 2022-08-07 16:33 | NUR ---
MS RN NOTE RECEIVED A CALL FROM [facility] AROUND [id number] SCAN RESULT. RELAYED RESULTS TO HOSPITALIST ZAHRAA, AWAITING MD ORDERS, COMFORT MEASURES PROVIDED. NO COMPLAIN OF PAIN AT THIS TIME.
[2022-08-07] MEDS: Z GUARD REMEDY 4 OZ OINT TP SCH (17:04)
--- NOTE | 2022-08-07 19:00 | NUR ---
MS RN CLOSING NOTE PATIENT IN BED ASLEEP BUT EASILY WOKEN UP. PATIENT IS ALERT/ORIENTED X 3, SOMETIMES 2 BUT CURRENTLY LUCID CONFIRMED BY FAMILY. PATIENT ON OXYGEN AT 2LPM VIA NASAL CANULA WITH EQUAL AND UNLABORED BREATHING, WITH NO SIGNS OF RESPIRATORY DISTRESS. WITH IV ACCESS ON RIGHT AC #18G PATENT AND INTACT. AWAITNG RESULTS ORDERED BY DR. STEIN/ ROCAEL GARCIA INCLUDING THE DUPLEX FLAVIA. PROVIDED WITH CALM AND QUIET ENVIRONMENT. SAFETY MEASURES IN PLACE: CALL LIGHT WITHIN REACH, SIDE RAILS UP X 3, BED LOCKED IN LOWEST POSITION, BED ALARM ON. WILL ENDORSE TO NEXT SHIFT FOR CONTINUITY OF CARE.
[2022-08-07 20:00] VITALS: BP 123/70; TEMP 98.6
--- NOTE | 2022-08-07 20:27 | NUR ---
MS/TELE/RN RECEIVED PATIENT LYING IN BED AWAKE, ALERT, ORIENTED, APPEARS COMFORTABLE, NO SIGNS OF DISTRESS NOTED, CALL LIGHT IN REACH, WILL MONITOR.
[2022-08-07] MEDS: ENOXAPARIN SODIUM 40 MG/0.4 ML DISP.SYRIN SQ SCH (20:51)
--- NOTE | 2022-08-08 00:02 | NUR ---
MS/TELE/RN PATIENT IS SLEEPING AT THIS TIME, APPEARS COMFORTABLE, NO SIGNS OF DISTRESS NOTED, CALL LIGHT IN REACH, WILL CONTINUE TO MONITOR.
[2022-08-08] MEDS: LIDOCAINE VISCOUS 2% UD 15 ML UDC MM SCH ×3 (04:00→20:02)
--- NOTE | 2022-08-08 05:39 | NUR ---
MS/TELE/RN PATIENT REFUSED MORNING CARE.
--- NOTE | 2022-08-08 06:11 | NUR ---
MS/TELE/RN PATIENT IS SLEEPING, EASILY AROUSABLE, APPEARS COMFORTABLE, NO SIGNS OF DISTRESS NOTED, CALL LIGHT IN REACH, ALL NEEDS ATTENDED AT THIS TIME, WILL CONTINUE TO MONITOR.
--- NOTE | 2022-08-08 06:14 | NUR ---
TEXTED DR. VUONG FOR MRI APPROVAL
[2022-08-08 06:35] LABS: BASOPHILS # (AUTO) 0.1 K/uL (0.0-0.2); BASOPHILS % (AUTO) 1.1 % (0.0-2.0); EOSINOPHILS % (AUTO) 1.3 % (0.0-6.0); HEMATOCRIT 27 % (33-45); HEMOGLOBIN 8.5 g/dL (11.5-14.8); LYMPHOCYTES # (AUTO) 1.7 K/uL (0.8-4.8); LYMPHOCYTES % (AUTO) 23.9 % (20.0-44.0); MEAN CORPUSCULAR HGB CONC 32 g/dl (31.0-36.0); MEAN CORPUSCULAR VOLUME 86 fL (82-100); MONOCYTES # (AUTO) 1.7 K/uL (0.1-1.30); MONOCYTES % (AUTO) 24.1 % (2.0-12.0); NEUTROPHILS # (AUTO) 3.5 K/uL (1.8-8.9); NEUTROPHILS % (AUTO) 49.6 % (43.0-81.0); PLATELET COUNT (AUTO) 333 K/uL (150-450); RED BLOOD CELL COUNT(AUTO) 3.12 MIL/uL (4.0-5.2); WHITE BLOOD COUNT (AUTO) 7.1 K/uL (4.3-11.0)
[2022-08-08 06:57] LABS: CALCIUM, SERUM 8.4 mg/dL (8.5-10.1); CARBON DIOXIDE 24 mmol/L (21-32); CHLORIDE 103 mmol/L (98-107); CREATININE 0.4 mg/dL (0.6-1.3); GLUCOSE 102 mg/dL (74-106); MAGNESIUM 2.1 mg/dL (1.8-2.4); PHOSPHORUS 3.7 mg/dL (2.5-4.9); POTASSIUM 3.2 mmol/L (3.5-5.1); SODIUM SERUM 138 mmol/L (136-145); UREA NITROGEN, BLOOD 11 mg/dL (7-18)
--- NOTE | 2022-08-08 07:00 | NUR ---
RN OPENING NOTE- PT IN BED. PATIENT IS ALERT/ORIENTED X 2. PATIENT ON OXYGEN AT 2LPM VIA NASAL CANULA WITH IV ACCESS ON RIGHT FOREARM #22G PATENT AND INTACT. SAFETY MEASURES IN PLACE: CALL LIGHT WITHIN REACH, SIDE RAILS UP X 3, BED LOCKED IN LOWEST POSITION, BED ALARM ON. WILL CONTINUE WITH PLAN OF CARE.
[2022-08-08 07:07] LABS: IMMUNOGLOBULIN A, SERUM 684 mg/dL (64-422); IMMUNOGLOBULIN G, SERUM 1830 mg/dL (586-1602); IMMUNOGLOBULIN M, SERUM 80 mg/dL (26-217)
--- NOTE | 2022-08-08 07:12 | NUR ---
MS/TELE/RN NO CHANGE IN CONDITION, ENDORSED TO NEXT RN FOR CONTINUITY OF CARE.
[2022-08-08 08:00] VITALS: BP 129/76; TEMP 98.3
[2022-08-08] MEDS: Z GUARD REMEDY 4 OZ OINT TP SCH (08:44)
[2022-08-08] MEDS: PANTOPRAZOLE 40 MG VIAL IV SCH (08:44)
[2022-08-08] MEDS: POTASSIUM CL. PREMIX PERIPHER. 50 ML IV SCH ×4 (09:59→12:29)
[2022-08-08] MEDS: LEVOTHYROXINE INJ 100 MCG VIAL IV SCH (09:59)
[2022-08-08] MEDS: MORPHINE SULFATE INJ 2 MG/ML DISP.SYRIN IV PRN ×2 (10:34→23:13)
[2022-08-08] MEDS: CEFTRIAXONE 1 G in IV D5W 50 ML IV SCH (11:09)
[2022-08-08] MEDS: IV D5/ 0.9% NACL 1,000 ML IV PRN (12:21)
[2022-08-08] MEDS: HEPARIN SODIUM, PORCINE 5000 UNITS/1 ML VIAL SQ SCH ×2 (13:00→21:00)
[2022-08-08 13:50] LABS: BASOPHILS % (MANUAL) 0 % (0.0-2.0); EOSINOPHILS % (MANUAL) 2 % (0-4); LYMPHOCYTES % (MANUAL) 22 % (16-48); MONOCYTES % (MANUAL) 23 % (0-11.0); NEUTROPHILS % (MANUAL) 53 (42-76)
[2022-08-08 16:00] VITALS: BP 122/60; TEMP 97.9
--- NOTE | 2022-08-08 19:05 | NUR ---
MS RN OPENING NOTE PATIENT IS RESTING IN BED WITH HOB ELEVATED. PT IS ON 2LPM OF OXYGEN VIA NC, TOLERATED WELL. NO S/S OF DISTRESS OR SOB. PT IS ALERT AND ORIENTED, AO X 2 TO 3. SHE IS ABLE TO REPORT HER PAIN LEVEL AND REQUEST FOR PAIN MEDICATIONS. IV ACCESS IS AT HER R AC, #18G. INFUSING D5NS@ 60 ML/HR. IV SITE IS PATENT AND INTACT. ASSESSED THE PATIENT, SHE IS ABLE TO SWALLOW WITHOUT ASPIRATIONS. SAFETY MEASURES ARE IN PLACED: BED IN LOWEST AND LOCKED POSITION; SIDE RAILS UP X 3; CALL LIGHT AND TABLE ARE WITHIN REACH. WILL CONTINUE MONITORING THE PT AND PROVIDE THE CARE PT NEEDS.
[2022-08-08 20:23] VITALS: BP 154/90; TEMP 98.6
--- NOTE | 2022-08-08 21:55 | NUR ---
MS DOWD NOTE HEPARIN WAS HELD PER MD ORDER; WAITING FOR CT HEAD RESULT. Addendum: 08/09/22 at 0455 by MIGUEL ÁNGEL PATE RN DUE AT 2100 ON 08/08/2022
--- NOTE | 2022-08-08 23:22 | NUR ---
MS RN NOTE PT STATED THAT SHE WAS HAVING PAIN AT HER ABD, 09/14. PRN IV MEDICATION, MORPHINE 2 MG, ADMINISTERED TO THE PT PER MD ORDER.
[2022-08-09] MEDS: LIDOCAINE VISCOUS 2% UD 15 ML UDC MM SCH ×3 (04:06→20:03)
[2022-08-09] MEDS: MORPHINE SULFATE INJ 2 MG/ML DISP.SYRIN IV PRN ×4 (04:09→23:56)
--- NOTE | 2022-08-09 04:10 | NUR ---
MS RN NOTE PT STATED THAT SHE WAS HAVING PAIN AT HER ABD, 10/15. PRN IV MEDICATION, MORPHINE 2 MG, ADMINISTERED TO THE PT PER MD ORDER.
[2022-08-09] MEDS: HEPARIN SODIUM, PORCINE 5000 UNITS/1 ML VIAL SQ SCH ×3 (04:53→20:00)
--- NOTE | 2022-08-09 04:53 | NUR ---
MS RN NOTE HEPARIN DUE AT 0500 WAS HELD PER MD ORDER; WAITING FOR CT HEAD RESULT.
[2022-08-09 06:39] LABS: CALCIUM, SERUM 8.4 mg/dL (8.5-10.1); CARBON DIOXIDE 23 mmol/L (21-32); CHLORIDE 103 mmol/L (98-107); CREATININE 0.4 mg/dL (0.6-1.3); GLUCOSE 103 mg/dL (74-106); POTASSIUM 3.3 mmol/L (3.5-5.1); SODIUM SERUM 136 mmol/L (136-145); UREA NITROGEN, BLOOD 8 mg/dL (7-18)
--- NOTE | 2022-08-09 06:59 | NUR ---
MS RN CLOSING NOTE PATIENT IS RESTING IN BED WITH HOB ELEVATED. PT IS ON 2LPM OF OXYGEN VIA NC, TOLERATED WELL. NO S/S OF DISTRESS OR SOB. PT IS ALERT AND ORIENTED, AO X 2 TO 3. SHE IS ABLE TO REPORT HER PAIN LEVEL AND REQUEST FOR PAIN MEDICATIONS DURING THE SHIFT. CURRENTLY, PT DENIES OF HAVING PAIN. IV ACCESS IS AT HER R AC, #18G. INFUSING D5NS @ 60 ML/HR. IV SITE IS PATENT AND INTACT. SAFETY MEASURES ARE IN PLACED: BED IN LOWEST AND LOCKED POSITION; SIDE RAILS UP X 3; CALL LIGHT AND TABLE ARE WITHIN REACH. WILL ENDORSE NEXT SHIFT NURSE FOR CONTINUING PT CARE.
--- NOTE | 2022-08-09 07:35 | NUR ---
MS RN OPENING NOTE RECEIVED PATIENT ON BED AWAKE . PT IS ON 2LPM OF OXYGEN VIA NC, TOLERATED WELL. NO S/S OF DISTRESS OR SOB. A/OX2 NO C/O OF PAIN AND DISCOMFORT . IV ACCESS IS AT HER R AC, #18G. INFUSING D5NS @ 60 ML/HR. IV SITE IS PATENT AND INTACT. SAFETY MEASURES ARE IN PLACED: BED IN LOWEST AND LOCKED POSITION; SIDE RAILS UP X 3; CALL LIGHT AND TABLE ARE WITHIN REACH. WILL CONTINUE TO MONITOR
[2022-08-09] MEDS: PANTOPRAZOLE 40 MG/PACK PACK PO SCH (08:31)
[2022-08-09] MEDS: LEVOTHYROXINE INJ 100 MCG VIAL IV SCH (08:36)
[2022-08-09] MEDS ORDERED: POTASSIUM CHLORIDE 20 MEQ TAB.PRT.SR PO ONE (09:00)
[2022-08-09] MEDS: Z GUARD REMEDY 4 OZ OINT TP SCH (10:15)
[2022-08-09] MEDS: CEFTRIAXONE 1 G in IV D5W 50 ML IV SCH (10:16)
--- NOTE | 2022-08-09 12:02 | NUR ---
RN NOTES PATIENT C/O OF PAIN AND DISCOMFORT AND MORPHINE 2MG GIVEN IV ORDERED
[2022-08-09 12:42] LABS: BASOPHILS # (AUTO) 0.1 K/uL (0.0-0.2); EOSINOPHILS % (AUTO) 0.7 % (0.0-6.0); HEMATOCRIT 28 % (33-45); HEMOGLOBIN 8.5 g/dL (11.5-14.8); LYMPHOCYTES # (AUTO) 1.3 K/uL (0.8-4.8); LYMPHOCYTES % (AUTO) 15.3 % (20.0-44.0); MEAN CORPUSCULAR HGB CONC 31 g/dl (31.0-36.0); MEAN CORPUSCULAR VOLUME 91 fL (82-100); MONOCYTES % (AUTO) 24.2 % (2.0-12.0); NEUTROPHILS # (AUTO) 4.9 K/uL (1.8-8.9); NEUTROPHILS % (AUTO) 58.8 % (43.0-81.0); PLATELET COUNT (AUTO) 336 K/uL (150-450); RED BLOOD CELL COUNT(AUTO) 3.06 MIL/uL (4.0-5.2); WHITE BLOOD COUNT (AUTO) 8.4 K/uL (4.3-11.0)
[2022-08-09 13:07] LABS: *SPE A/G RATIO 0.4 (0.7-1.7); *SPE ALPHA-1-GLOBULIN 0.4 g/dL (0.0-0.4); *SPE ALPHA-2-GLOBULIN 0.9 g/dL (0.4-1.0); *SPE BETA GLOBULIN 1.4 g/dL (0.7-1.3); *SPE M-SPIKE Not Observed g/dL (Not Observed)
[2022-08-09 13:14] LABS: BAND % (MANUAL) 5 % (0.0-5.0); BASOPHILS % (MANUAL) 0 % (0.0-2.0); EOSINOPHILS % (MANUAL) 0 % (0-4); LYMPHOCYTES % (MANUAL) 12 % (16-48); MONOCYTES % (MANUAL) 22 % (0-11.0); NEUTROPHILS % (MANUAL) 61 (42-76)
--- NOTE | 2022-08-09 16:02 | NUR ---
RN NOTES PATIENT C/O OF PAIN AND DISCOMFORT AND MORPHINE 2MG GIVEN IV ORDERED
[2022-08-09] MEDS: IV D5/ 0.9% NACL 1,000 ML IV PRN (18:28)
--- NOTE | 2022-08-09 18:46 | NUR ---
MS RN CLOSING NOTE RECEIVED PATIENT ON BED AWAKE . PT IS ON 2LPM OF OXYGEN VIA NC, TOLERATED WELL. NO S/S OF DISTRESS OR SOB. A/OX2 -3 C/O OF PAIN AND DISCOMFORT AND MORPHINE 2MG GIVEN ORDERED . IV ACCESS IS AT HER LEFT HAND , # 22 G. INFUSING D5NS @ 60 ML/HR. IV SITE IS PATENT AND INTACT. ALL DUE MEDS GIVEN ORDERED , REFUSED FOR CT OF THE HEAD PER PATIENT SHE CANT TOLERATE LYING IN BED FLAT AND IT HURT HER NECK , [employer] MACHINE OPERATOR JOSE KOENIGOKE TO PATIENT AND AGREED [facility] AWARE AND INFORM RADIOLOGY THAT PATIENT AGREED , SAFETY MEASURES ARE IN PLACED: BED IN LOWEST AND LOCKED POSITION; SIDE RAILS UP X 3; CALL LIGHT AND TABLE ARE WITHIN REACH. ENDORSED TO NEXT SHIFT
--- NOTE | 2022-08-09 19:20 | NUR ---
RN Opening Note Received report from day shift nurse. Patient awake in bed resting. Appears comfortable. A/Ox2-3. No s/s of pain noted this time. on Oxygen 2L NC, breathing even and unlabored, no distress or SOB noted. IV access right hand 22G, intact patent and flushing well. Pt has purewick and draining well. SCD in place on bilateral lower extremities. Fall and safety measurement in place, bed alarm on, bed in low and locked position, call light and table within reach, side rails up*2. Will continue monitoring.
[2022-08-09 20:00] VITALS: BP 144/75; TEMP 98.1; TEMP 98.3
--- NOTE | 2022-08-10 00:05 | NUR ---
RN NOTE Pt complaint of left leg pain 10/10 unrelieved by resting. Administered PRN morphine 2mg IVP per MD order. Will continue monitoring pt and reassess.
[2022-08-10] MEDS: HEPARIN SODIUM, PORCINE 5000 UNITS/1 ML VIAL SQ SCH ×2 (04:09→12:23)
--- NOTE | 2022-08-10 04:09 | NUR ---
RN notes Held heparin per MD ordered.
[2022-08-10] MEDS: LIDOCAINE VISCOUS 2% UD 15 ML UDC MM SCH ×2 (04:11→12:23)
--- NOTE | 2022-08-10 06:30 | NUR ---
RN Closing Note Pt awake in bed resting. Appears comfortable. A/Ox2-3, confused. No s/s of pain noted this time. on Oxygen 2L NC, breathing even and unlabored, no distress or SOB noted. IV access right hand 22G, intact patent and flushing well, running D5NS at 60mL/H. Pt has purewick and draining well. SCD in place on bilateral lower extremities. Scheduled medications administered. Wound care implemented. Pt directed to turn and reposition. All needs attended and anticipated. Motivated to participate in self-care. Fall and safety measurement in place and maintained throughout shift, bed alarm on, bed in low and locked position, call light and table within reach, side rails up*2. Will endorse care to day shift.
[2022-08-10 07:00] VITALS: BP 123/63; TEMP 98.4
--- NOTE | 2022-08-10 07:05 | NUR ---
RN Opening Note Received Pt awake in bed resting. Appears comfortable. A/Ox2-3, confused. No s/s of pain noted this time. on Oxygen 2L NC, breathing even and unlabored, no distress or SOB noted. IV access left hand 22G, C/D/I, running D5NS at 60mL/H. Pt has purewick and draining well. No SCD in place on BLE at this time, on scheduled MRI and CT, will continue to monitor
[2022-08-10 07:50] LABS: BASOPHILS # (AUTO) 0.1 K/uL (0.0-0.2); BASOPHILS % (AUTO) 0.9 % (0.0-2.0); EOSINOPHILS % (AUTO) 1.7 % (0.0-6.0); HEMATOCRIT 26 % (33-45); HEMOGLOBIN 8.1 g/dL (11.5-14.8); LYMPHOCYTES # (AUTO) 1.4 K/uL (0.8-4.8); LYMPHOCYTES % (AUTO) 15.5 % (20.0-44.0); MEAN CORPUSCULAR HGB CONC 32 g/dl (31.0-36.0); MEAN CORPUSCULAR VOLUME 87 fL (82-100); MONOCYTES % (AUTO) 22.9 % (2.0-12.0); NEUTROPHILS # (AUTO) 5.3 K/uL (1.8-8.9); PLATELET COUNT (AUTO) 413 K/uL (150-450); RED BLOOD CELL COUNT(AUTO) 2.94 MIL/uL (4.0-5.2); WHITE BLOOD COUNT (AUTO) 8.9 K/uL (4.3-11.0)
[2022-08-10] MEDS: PANTOPRAZOLE 40 MG/PACK PACK PO SCH (08:18)
[2022-08-10] MEDS: LEVOTHYROXINE INJ 100 MCG VIAL IV SCH (08:18)
[2022-08-10] MEDS: Z GUARD REMEDY 4 OZ OINT TP SCH (08:48)
[2022-08-10] MEDS: CEFTRIAXONE 1 G in IV D5W 50 ML IV SCH (11:24)
[2022-08-10] MEDS: MORPHINE SULFATE INJ 2 MG/ML DISP.SYRIN IV PRN (11:25)
[2022-08-10 13:17] LABS: BAND % (MANUAL) 3 % (0.0-5.0); BASOPHILS % (MANUAL) 0 % (0.0-2.0); EOSINOPHILS % (MANUAL) 4 % (0-4); LYMPHOCYTES % (MANUAL) 13 % (16-48); MONOCYTES % (MANUAL) 19 % (0-11.0); NEUTROPHILS % (MANUAL) 61 (42-76)
[2022-08-10] MEDS: ENSURE ENLIVE 237 ML LIQUID (VANILLA) PO SCH ×2 (13:20→17:13)
--- NOTE | 2022-08-10 19:02 | NUR ---
Patient discharged to [facility], stable, A/O x2-3, able to make needs known, no pain nor any signs of distress at this time. Patient, SNF and overlock collar setter given discharge instructions both verbally and in writing. All belongings accounted for. IV line removed, C/D/I. SAfety protocols in placed at all times. Patient safely left 3/F [place] via [facility] with 3 overlock collar setter assisting at 1825. Charge nurse aware
== END 2022-08-10 18:31 | DRG 640 ==
LOC: ER 10:27 → MED 14:55
PROVIDERS: ADMIT Nurse Practitioner Acute Care; ATTEND Internal Medicine
DX: E86.0 Dehydration (principal); G93.41 Metabolic encephalopathy; C18.9 Malignant neoplasm of colon, unspecified; C78.02 Secondary malignant neoplasm of left lung; C78.7 Secondary malignant neoplasm of liver and intrahepatic bile duct; C78.01 Secondary malignant neoplasm of right lung; N39.0 Urinary tract infection, site not specified; E87.6 Hypokalemia; Z86.73 Personal history of transient ischemic attack (TIA), and cerebral infarction without residual deficits; G30.9 Alzheimer's disease, unspecified; I10 Essential (primary) hypertension; F02.80 Dementia in other diseases classified elsewhere, unspecified severity, without behavioral disturbance, psychotic disturbance, mood disturbance, and anxiety; Z86.16 Personal history of COVID-19; K80.20 Calculus of gallbladder without cholecystitis without obstruction; N31.9 Neuromuscular dysfunction of bladder, unspecified; M19.90 Unspecified osteoarthritis, unspecified site; H35.30 Unspecified macular degeneration; L30.9 Dermatitis, unspecified; Z79.82 Long term (current) use of aspirin; Z79.899 Other long term (current) drug therapy; E87.1 Hypo-osmolality and hyponatremia; D63.8 Anemia in other chronic diseases classified elsewhere; B96.89 Other specified bacterial agents as the cause of diseases classified elsewhere; K12.30 Oral mucositis (ulcerative), unspecified; R13.10 Dysphagia, unspecified
CPT/HCPCS: 36415; 70487-TC; 71045-TC; 71260-TC; 72146-TC; 80048-TC; 80061-TC; 81001; 82378; 82607-TC; 82728-TC; 82784; 83540-TC; 83735-TC; 84100-TC; 84155; 84165; 84443-TC; 85025-TC; 85027-TC; 85610-TC; 85730-TC; 86334; 87081-TC; 87086-TC; 92526; 92611-TC; 93971-TC; 97110-TC; 97530-TC; C9113; G0378; J0696; J1650; J2270; J3480; J7030; J7042; J7050; J7060; Q9967

== ENCOUNTER 2022-09-02 15:10 | Inpatient (IN) | payer MEDICARE, OTHER ==
[~2022-09-02] VITALS: Ht 170.2 cm; Wt 69.4 kg
[~2022-09-02 15:10] MED LIST changes: +ACET-2605 PO; +AMIN30LI2 PO; +CAPE500T15 PO; +FERR325T23 PO; +LOPE2CAP14 PO; +LOPE2TAB23 PO; +MAGN400T26 PO; +MEGE400O5 PO; +NYSTATIN MT; +PROC10TA13 PO; +REGORAFENIB; +TRAM50TA2 PO; +norco
--- NOTE | 2022-09-02 15:20 | NUR ---
[facility] , NAUSEA AND POOR ORAL INTAKE X WEEK, DENIES VOMITING. PLACED IN BED, AAOX3, BREATHING EVEN AND UNLABORED SATURATING AT 97%RA.
--- NOTE | 2022-09-02 15:41 | NUR ---
MOVE SHEET SUBMITTED.
--- NOTE | 2022-09-02 16:04 | NUR ---
CONTACTED NURSING SUPP. FOR MIDLINE NURSE
--- NOTE | 2022-09-02 16:46 | NUR ---
INFECTIOUS DISEASES PHYSICIAN AT BEDSIDE
[2022-09-02 17:24] LABS: BASOPHILS # (AUTO) 0.1 K/uL (0.0-0.2); EOSINOPHILS % (AUTO) 5.2 % (0.0-6.0); HEMATOCRIT 30 % (33-45); HEMOGLOBIN 9.4 g/dL (11.5-14.8); LYMPHOCYTES # (AUTO) 2.6 K/uL (0.8-4.8); LYMPHOCYTES % (AUTO) 29.8 % (20.0-44.0); MEAN CORPUSCULAR HGB CONC 32 g/dl (31.0-36.0); MEAN CORPUSCULAR VOLUME 87 fL (82-100); MONOCYTES # (AUTO) 0.7 K/uL (0.1-1.30); MONOCYTES % (AUTO) 7.5 % (2.0-12.0); NEUTROPHILS % (AUTO) 56.5 % (43.0-81.0); PLATELET COUNT (AUTO) 291 K/uL (150-450); RED BLOOD CELL COUNT(AUTO) 3.41 MIL/uL (4.0-5.2); WHITE BLOOD COUNT (AUTO) 8.9 K/uL (4.3-11.0)
[2022-09-02 17:52] LABS: ALANINE AMINOTRANSFERASE 14 U/L (12-78); ALBUMIN 1.5 g/dL (3.4-5.0); ALKALINE PHOSPHATASE 733 U/L (46-116); ASPARTATE AMINOTRANSFERASE 62 U/L (15-37); BILIRUBIN,DIRECT 0.4 mg/dL (0.0-0.2); BILIRUBIN,TOTAL 0.9 mg/dL (0.2-1.0); CALCIUM, SERUM 8.8 mg/dL (8.5-10.1); CARBON DIOXIDE 26 mmol/L (21-32); CHLORIDE 99 mmol/L (98-107); CREATININE 0.4 mg/dL (0.6-1.3); GLUCOSE 91 mg/dL (74-106); SODIUM SERUM 133 mmol/L (136-145); TOTAL PROTEIN, SERUM 7.6 g/dL (6.4-8.2); UREA NITROGEN, BLOOD 7 mg/dL (7-18)
[2022-09-02] MEDS ORDERED: KETOROLAC TROMETHAMINE INJ 30 MG/ML VIAL IV ONE (18:00)
--- NOTE | 2022-09-02 18:00 | NUR ---
MIDLINE NURSE AT BEDSIDE
[2022-09-02] MEDS ORDERED: KETOROLAC TROMETHAMINE INJ 30 MG/ML VIAL ONE (18:01)
[2022-09-02] MEDS ORDERED: POTASSIUM CL. PREMIX PERIPHER. 50 ML ONE ×2 (18:14→19:22)
--- NOTE | 2022-09-02 18:15 | NUR ---
ROOM 115-2, ADMITTING AWARE
[2022-09-02] MEDS: POTASSIUM CL. PREMIX PERIPHER. 50 ML IV SCH ×2 (18:19→19:26)
[2022-09-02] MEDS ORDERED: IV NS 0.9% 1,000 ML BAG IV ONE (18:30)
[2022-09-02] MEDS ORDERED: Z GUARD REMEDY 4 OZ OINT TP PRN (19:00)
[2022-09-02] MEDS ORDERED: MIDODRINE HCL (5MG) 5 MG TABLET PO PRN (19:00)
[2022-09-02] MEDS ORDERED: MAG HYDROX/AL HYDROX/SIMETH 30 ML UDC PO PRN (19:00)
[2022-09-02] MEDS ORDERED: MAGNESIUM HYDROXIDE 30 ML UDC PO PRN (19:00)
[2022-09-02] MEDS ORDERED: ACETAMINOPHEN ES 500 MG TABLET PO SCH (19:00)
[2022-09-02] MEDS ORDERED: ONDANSETRON HCL/PF 4 MG/2 ML VIAL IVP PRN (19:00)
[2022-09-02] MEDS ORDERED: LOPERAMIDE HCL (2 MG CAP) 2 MG CAPSULE PO PRN (19:00)
[2022-09-02] MEDS ORDERED: ACETAMINOPHEN 325 MG TABLET PO PRN (19:00)
--- NOTE | 2022-09-02 19:34 | NUR ---
REPORT GIVEN TO SHREE RN ROOM 115-2 FOR DONNA
--- NOTE | 2022-09-02 19:40 | NUR ---
MS1 RN NOTES RECEIVED FROM ER PER GEORGE THIS 77YO FEMALE,ALERT,ORIENTED 2 FROM [facility],WITH CHIEF COMPLAINTS OF NAUSEA AND POOR ORAL INTAKE X1 WEEK.WITH RIGHT UPPER MIDLINE FOR IV AND MEDS.NOTED SKIN ISSUES ON RIGHT UPPER LEG,SACRAL DTI, WOUND CARE INITIATED.WOUND CARE CONSULT ORDERED.ON IVF NS AT 75ML/HR RATE INFUSING VIA IV PUMP.WILL CONTINUE TO MONITOR STATUS.CALL LIGHT IN REACH,NEEDS ANTICIPATED.
[2022-09-02 20:05] VITALS: BP 137/70; TEMP 97.7; O2SAT 97
[2022-09-02] MEDS: DONEPEZIL 5 MG TABLET PO SCH (21:07)
[2022-09-02] MEDS: LEVETIRACETAM (250 MG) 250 MG TABLET PO SCH (21:07)
[2022-09-02] MEDS: MIRTAZAPINE 15 MG TABLET PO SCH (21:09)
[2022-09-02] MEDS: IV NS 0.9% 1,000 ML IV PRN (23:45)
[2022-09-03 04:00] VITALS: BP 137/59; TEMP 98.4; O2SAT 98
--- NOTE | 2022-09-03 07:07 | NUR ---
RN OPENING NOTE PATIENT IN BED ASLEEP, ON ROOM AIR, NO SOB OR DISTRESS NOTED. IV ACCESS RIGHT UPPER ARM MIDLINE, NS AT 75ML/HR INFUSING WELL. PATIENT IS ON PUREWICK, NO DISCOMFORT NOTED. SAFETY MEASURES IMPLEMENTED: BED LOCKED IN THE LOWEST POSITION, CALL LIGHT WITHIN REACH, WILL CONTINUE TO MONITOR.
--- NOTE | 2022-09-03 07:07 | NUR ---
MS RN NOTES SLEEP WELL AT NIGHT,ALL DUE MEDS ADMINISTERED WITH [employer] SAUCE,TAKEN WELL.NEGATIVE FOR ASPIRATION.IN NO ACUTE DISTRESS.
[2022-09-03] MEDS: LEVOTHYROXINE SODIUM 25 MCG TABLET PO SCH (07:15)
[2022-09-03 07:59] LABS: CALCIUM, SERUM 6.7 mg/dL (8.5-10.1); CARBON DIOXIDE 20 mmol/L (21-32); CHLORIDE 109 mmol/L (98-107); CREATININE 0.1 mg/dL (0.6-1.3); GLUCOSE 60 mg/dL (74-106); MAGNESIUM 1.5 mg/dL (1.8-2.4); PHOSPHORUS 2.6 mg/dL (2.5-4.9); POTASSIUM 3.7 mmol/L (3.5-5.1); SODIUM SERUM 137 mmol/L (136-145); UREA NITROGEN, BLOOD 6 mg/dL (7-18)
[2022-09-03] MEDS: MEGESTROL ACETATE SUSP 400 MG/10 ML UDC PO SCH ×2 (08:25→17:10)
[2022-09-03] MEDS: LEVETIRACETAM (250 MG) 250 MG TABLET PO SCH ×2 (08:25→21:11)
[2022-09-03] MEDS: ASPIRIN 81 MG TAB.CHEW PO SCH (08:25)
[2022-09-03] MEDS: DIVALPROEX SODIUM 500 MG TABLET.DR PO SCH ×2 (08:26→17:10)
[2022-09-03] MEDS: PANTOPRAZOLE 40 MG TABLET.DR PO SCH (08:26)
[2022-09-03] MEDS: FERROUS SULFATE (325 MG) 325 MG/TAB TABLET PO SCH ×3 (08:26→17:10)
[2022-09-03] MEDS ORDERED: CAPECITABINE 500 MG TABLET PO SCH ×2 (09:00)
[2022-09-03] MEDS ORDERED: MAGNESIUM OXIDE 400 MG TABLET PO SCH (09:00)
[2022-09-03] MEDS: MAGNESIUM OXIDE 400 MG TABLET PO SCH (09:34)
[2022-09-03 11:57] LABS: BASOPHILS # (AUTO) 0.1 K/uL (0.0-0.2); BASOPHILS % (AUTO) 1.5 % (0.0-2.0); EOSINOPHILS % (AUTO) 6.8 % (0.0-6.0); HEMATOCRIT 32 % (33-45); HEMOGLOBIN 9.2 g/dL (11.5-14.8); LYMPHOCYTES # (AUTO) 1.6 K/uL (0.8-4.8); LYMPHOCYTES % (AUTO) 25.5 % (20.0-44.0); MEAN CORPUSCULAR HGB CONC 29 g/dl (31.0-36.0); MEAN CORPUSCULAR VOLUME 96 fL (82-100); MONOCYTES # (AUTO) 0.5 K/uL (0.1-1.30); NEUTROPHILS # (AUTO) 3.6 K/uL (1.8-8.9); NEUTROPHILS % (AUTO) 58.2 % (43.0-81.0); PLATELET COUNT (AUTO) 192 K/uL (150-450); RED BLOOD CELL COUNT(AUTO) 3.32 MIL/uL (4.0-5.2); WHITE BLOOD COUNT (AUTO) 6.2 K/uL (4.3-11.0)
[2022-09-03 12:00] VITALS: BP 137/59; TEMP 98.4; O2SAT 98
--- NOTE | 2022-09-03 16:15 | NUR ---
NPO AFTER MIDNIGHT FOR CT IN AM
[2022-09-03] MEDS: IV NS 0.9% 1,000 ML IV PRN (16:46)
[2022-09-03 18:34] LABS: THYROID STIMULATING HORMONE 11.893 uIU/mL (0.358-3.74)
--- NOTE | 2022-09-03 19:00 | NUR ---
RN OPENING NOTE RECEIVED PT ASLEEP IN BED. PT IS A/O X 2. PT IS IN RA TOLERATING WELL, BREATHING EVEN AND UNLABORED @ THIS TIME. PT IV PRESENT ON THE RIGHT UPPER ARM MIDLINE RUNNING NS @ 75MLS/HR, PATENT, INTACT AND FLUSHES WELL W/ NO S&SX OF INFILTRATION @ SITE NOTED. SAFETY MEASURE IS IN PLACE. BED IN LOWEST AND LOCKED POSITION. SIDE RAILS UP X 4. BEDSIDE TABLE AND CALL LIGHT IS EASY REACH. BED ALARM IS ON. WILL CONTINUE TO MONITOR ACCORDINGLY.
--- NOTE | 2022-09-03 19:20 | NUR ---
RN CLOSING NOTE PATIENT IN BED ASLEEP, ON ROOM AIR, NO SOB OR DISTRESS NOTED. IV ACCESS RIGHT UPPER ARM MIDLINE, NS AT 75ML/HR INFUSING WELL. PATIENT IS ON PUREWICK, NO DISCOMFORT NOTED. SAFETY MEASURES IMPLEMENTED: BED LOCKED IN THE LOWEST POSITION, CALL LIGHT WITHIN REACH, WILL ENDORSE TO THE NEXT SHIFT NURSE FOR DONNA.
[2022-09-03 20:00] VITALS: BP 141/61; TEMP 98.1; O2SAT 94
[2022-09-03] MEDS: DONEPEZIL 5 MG TABLET PO SCH (21:11)
[2022-09-03] MEDS: MIRTAZAPINE 15 MG TABLET PO SCH (21:13)
[2022-09-04 04:00] VITALS: BP 115/69; TEMP 98.2; O2SAT 99
--- NOTE | 2022-09-04 06:35 | NUR ---
RN CLOSING NOTE PT ASLEEP & RESTING COMFORTABLY IN BED. PT IS A/O X 2. PT IS STABLE IN RA W/ NO S&SX OF RESPIRATORY DISTRESS @ THIS TIME. PT IV PRESENT ON THE RIGHT UPPER ARM MIDLINE RUNNING NS @ 75MLS/HR, PATENT, INTACT AND FLUSHES WELL W/ NO S&SX OF INFILTRATION @ SITE NOTED. SAFETY MEASURE IS IN PLACE. BED IN LOWEST AND LOCKED POSITION. SIDE RAILS UP X 4. BEDSIDE TABLE AND CALL LIGHT IS EASY REACH. BED ALARM IS ON. WILL ENDORSE PT TO THE NEXT SHIFT FOR DONNA.
[2022-09-04] MEDS: MEGESTROL ACETATE SUSP 400 MG/10 ML UDC PO SCH ×2 (09:00→16:26)
[2022-09-04] MEDS: DIVALPROEX SODIUM 500 MG TABLET.DR PO SCH ×2 (09:00→16:23)
[2022-09-04] MEDS: FERROUS SULFATE (325 MG) 325 MG/TAB TABLET PO SCH ×4 (09:00→16:26)
[2022-09-04] MEDS: IV NS 0.9% 1,000 ML IV PRN ×2 (09:49→22:32)
[2022-09-04 10:00] VITALS: BP 140/68; TEMP 98
[2022-09-04] MEDS ORDERED: FLUC100T PO (11:10)
[2022-09-04] MEDS ORDERED: MAG30ORA PO (11:10)
[2022-09-04] MEDS ORDERED: HYDR-4303 PO (11:10)
[2022-09-04] MEDS ORDERED: ACET-868 PO ×2 (11:10)
[2022-09-04] MEDS ORDERED: NORM210S TP (11:10)
[2022-09-04] MEDS ORDERED: ZINC220C6 PO (11:10)
[2022-09-04] MEDS ORDERED: MAGN400O6 PO (11:10)
[2022-09-04] MEDS ORDERED: NA P133E RC (11:10)
[2022-09-04] MEDS ORDERED: AMIO200T5 PO (11:10)
[2022-09-04] MEDS ORDERED: APIX5TAB PO (11:10)
[2022-09-04] MEDS ORDERED: MENT113O TP (11:10)
[2022-09-04] MEDS: PROSOURCE / PROSTAT (PYXIS) 30 ML UDC PO SCH ×2 (13:00→16:26)
[2022-09-04 16:00] VITALS: BP 148/88; TEMP 98.4
[2022-09-04] MEDS: MAGNESIUM OXIDE 400 MG TABLET PO SCH (16:23)
[2022-09-04] MEDS: LEVOTHYROXINE SODIUM 25 MCG TABLET PO SCH (16:23)
[2022-09-04] MEDS: LEVETIRACETAM (250 MG) 250 MG TABLET PO SCH ×2 (16:23→21:28)
[2022-09-04] MEDS: ASPIRIN 81 MG TAB.CHEW PO SCH (16:24)
[2022-09-04] MEDS: PANTOPRAZOLE 40 MG TABLET.DR PO SCH (16:24)
[2022-09-04] MEDS: ENSURE ENLIVE 237 ML LIQUID (VANILLA) PO SCH (16:25)
--- NOTE | 2022-09-04 18:30 | NUR ---
SHIFT NOTE: PT RESTING COMFORTABLY IN BED. PT IS A/O X 2. PT IS STABLE IN RA W/ NO S&SX OF RESPIRATORY DISTRESS @ THIS TIME. INCONTINENT OF BOWEL AND BLADDER. NO CHANGES IN SKIN INTEGRITY. PATIENT REMAINED NPO FOR CT OF ABDOMEN/PELVIS. UNABLE TO REACH DPOA FOR CONSENT. DR LOUISE NOTIFIED AND CANCELLED THE EXAM FOR NOW AND ALLOWED DIET TO RESUME. ONCOLOGY CAME TO SEE THE PATIENT AND WILL TRY TO SEE IF THEY HAVE ADDITIONAL CONTACT INFORMATION FOR THE DPOA. PATIENT ASSISTED WITH ADL'S NEEDED. MIDLINE PRESENT ON THE RIGHT UPPER ARM MIDLINE RUNNING NS @ 75MLS/HR, PATENT, INTACT AND FLUSHES WELL W/ NO S&SX OF INFILTRATION @ SITE NOTED. SAFETY MEASURES IN PLACE. BED IN LOWEST AND LOCKED POSITION. SIDE RAILS UP X 4. BEDSIDE TABLE AND CALL LIGHT IS EASY REACH. BED ALARM IS ON. WILL CONTINUE CURRENT POC.
--- NOTE | 2022-09-04 19:05 | NUR ---
MS RN OPENING NOTE PT IS RESTING IN BED WITH HOB ELEVATED AT 45 DEGREE. SHE IS ALERT AND ORIENTED, AO X 2. PT IS ON 1 LPM OF OXYGEN VIA NC, TOLERATED WELL. NO S/S OF DISTRESS OR SOB. IV ACCESS IS AT HER R UA, ML, #18G, INFUSING NS @75 ML/HR. IV SITE IS PATENT AND INTACT. PT DENIES OF HAVING PAIN AT THIS MOMENT. SAFETY MEASURES ARE IN PLACED: BED IN LOWEST AND LOCKED POSITION; SIDE RAILS UP X 2; BED ALARM IS ON; CALL LIGHT AND TABLE ARE WITHIN REACH. WILL CONTINUE MONITORING THE PT AND PROVIDE THE CARE PT NEEDS.
[2022-09-04 20:00] VITALS: BP 144/96; TEMP 98; O2SAT 99
[2022-09-04] MEDS: DONEPEZIL 5 MG TABLET PO SCH (21:27)
[2022-09-04] MEDS: MIRTAZAPINE 15 MG TABLET PO SCH (21:27)
[2022-09-04] MEDS: TRAMADOL HCL 50 MG TABLET PO PRN (22:36)
--- NOTE | 2022-09-04 22:36 | NUR ---
MS RN NOTE PT STATED THAT SHE WAS HAVING PAIN AT HER LOWER LEGS BILATERAL AND HER PAIN LEVEL IS 7/10. PRN PO MEDICATION, TRAMADOL 50 MG, ADMINISTERED TO THE PT PER MD ORDER.
[2022-09-05 04:00] VITALS: BP 124/61; TEMP 97.9; O2SAT 99
--- NOTE | 2022-09-05 06:19 | NUR ---
MS RN CLOSING NOTE PT IS RESTING IN BED WITH HOB ELEVATED AT 45 DEGREE. SHE IS ALERT AND ORIENTED, AO X 2. PT IS ON 1 LPM OF OXYGEN VIA NC, TOLERATED WELL. NO S/S OF DISTRESS OR SOB. IV ACCESS IS AT HER R UA, ML, #18G, INFUSING NS @75 ML/HR. IV SITE IS PATENT AND INTACT. PT DENIES OF HAVING PAIN AT THIS MOMENT. SAFETY MEASURES ARE IN PLACED: BED IN LOWEST AND LOCKED POSITION; SIDE RAILS UP X 2; BED ALARM IS ON; CALL LIGHT AND TABLE ARE WITHIN REACH. WILL ENDORSE NEXT SHIFT NURSE FOR CONTINUING PT CARE.
[2022-09-05 06:33] LABS: BASOPHILS # (AUTO) 0.1 K/uL (0.0-0.2); BASOPHILS % (AUTO) 1.2 % (0.0-2.0); EOSINOPHILS % (AUTO) 6.7 % (0.0-6.0); HEMATOCRIT 29 % (33-45); HEMOGLOBIN 8.5 g/dL (11.5-14.8); LYMPHOCYTES # (AUTO) 1.8 K/uL (0.8-4.8); LYMPHOCYTES % (AUTO) 25.7 % (20.0-44.0); MEAN CORPUSCULAR HGB CONC 30 g/dl (31.0-36.0); MEAN CORPUSCULAR VOLUME 93 fL (82-100); MONOCYTES # (AUTO) 0.7 K/uL (0.1-1.30); MONOCYTES % (AUTO) 10.8 % (2.0-12.0); NEUTROPHILS # (AUTO) 3.8 K/uL (1.8-8.9); NEUTROPHILS % (AUTO) 55.6 % (43.0-81.0); PLATELET COUNT (AUTO) 133 K/uL (150-450); RED BLOOD CELL COUNT(AUTO) 3.09 MIL/uL (4.0-5.2); WHITE BLOOD COUNT (AUTO) 6.8 K/uL (4.3-11.0)
[2022-09-05 06:57] LABS: CALCIUM, SERUM 7.7 mg/dL (8.5-10.1); CARBON DIOXIDE 22 mmol/L (21-32); CHLORIDE 105 mmol/L (98-107); CREATININE 0.3 mg/dL (0.6-1.3); GLUCOSE 77 mg/dL (74-106); POTASSIUM 3.2 mmol/L (3.5-5.1); SODIUM SERUM 136 mmol/L (136-145); UREA NITROGEN, BLOOD 6 mg/dL (7-18)
--- NOTE | 2022-09-05 07:15 | NUR ---
MS RN OPEN NOTE PT IS RESTING IN BED WITH HOB ELEVATED AT 45SHE IS ALERT AND ORIENTED, AO X 2. PT IS ON 1 LPM OF OXYGEN VIA NC, TOLERATED WELL. NO S/S OF DISTRESS OR SOB. IV ACCESS IS AT HER R UA, ML, #18G, INFUSING NS @75 ML/HR. IV SITE IS PATENT AND INTACT. PT DENIES OF HAVING PAIN AT THIS MOMENT. SAFETY MEASURES ARE IN PLACED: BED IN LOWEST AND LOCKED POSITION; SIDE RAILS UP X 2; BED ALARM IS ON; CALL LIGHT AND TABLE ARE WITHIN REACH. WILL CONTINUE TO MONITOR AND FALLOW POC
[2022-09-05] MEDS ORDERED: POTASSIUM CHLORIDE 20 MEQ TAB.PRT.SR PO ONE (07:30)
[2022-09-05] MEDS: LEVOTHYROXINE SODIUM 25 MCG TABLET PO SCH (07:38)
[2022-09-05] MEDS: TRAMADOL HCL 50 MG TABLET PO PRN (07:39)
[2022-09-05 08:07] LABS: IMMUNOGLOBULIN A, SERUM 630 mg/dL (64-422); IMMUNOGLOBULIN G, SERUM 1379 mg/dL (586-1602); IMMUNOGLOBULIN M, SERUM 55 mg/dL (26-217)
[2022-09-05] MEDS: DIVALPROEX SODIUM 500 MG TABLET.DR PO SCH (08:32)
[2022-09-05] MEDS: PANTOPRAZOLE 40 MG TABLET.DR PO SCH (08:32)
[2022-09-05] MEDS: MEGESTROL ACETATE SUSP 400 MG/10 ML UDC PO SCH (08:32)
[2022-09-05] MEDS: MAGNESIUM OXIDE 400 MG TABLET PO SCH (08:32)
[2022-09-05] MEDS: LEVETIRACETAM (250 MG) 250 MG TABLET PO SCH (08:32)
[2022-09-05] MEDS: FERROUS SULFATE (325 MG) 325 MG/TAB TABLET PO SCH (08:33)
[2022-09-05] MEDS: PROSOURCE / PROSTAT (PYXIS) 30 ML UDC PO SCH (08:35)
[2022-09-05] MEDS: ENSURE ENLIVE 237 ML LIQUID (VANILLA) PO SCH (08:35)
[2022-09-05] MEDS: ASPIRIN 81 MG TAB.CHEW PO SCH (08:36)
[2022-09-05 12:00] VITALS: BP 112/53; TEMP 97.6; O2SAT 99
[2022-09-05 12:07] LABS: *SPE A/G RATIO 0.4 (0.7-1.7); *SPE ALPHA-1-GLOBULIN 0.4 g/dL (0.0-0.4); *SPE ALPHA-2-GLOBULIN 0.8 g/dL (0.4-1.0); *SPE BETA GLOBULIN 1.3 g/dL (0.7-1.3); *SPE M-SPIKE Not Observed g/dL (Not Observed)
--- NOTE | 2022-09-05 12:46 | NUR ---
EN NOTE ORDER RECEIVED TO DISCHARGE PATIENT . DISCHARGE INSTRUCTIONS PROVIDED TO THE EMT AND TO THE PATIENT'S DAUGHTER AND TO THE RN AT THE IMPRERIAL F , RN TERA / PATIENT IS AT STABLE CONDITION , ALL IV ACCESS LINES WAS REMOVED . PATIENT DISCHARGED FROM [facility]
== END 2022-09-05 15:51 | DRG 640 ==
LOC: ER 15:18 → MEDSG1 18:47
PROVIDERS: ADMIT Internal Medicine; ATTEND Internal Medicine
PROC: 05H533Z Insertion of Infusion Device into Right Subclavian Vein, Percutaneous Approach (ICD-10-PCS; principal; 2022-09-02)
PROC: B546ZZA Ultrasonography of Right Subclavian Vein, Guidance (ICD-10-PCS; 2022-09-02)
DX: E86.0 Dehydration (principal); E43 Unspecified severe protein-calorie malnutrition; G93.41 Metabolic encephalopathy; C18.9 Malignant neoplasm of colon, unspecified; C78.7 Secondary malignant neoplasm of liver and intrahepatic bile duct; E87.1 Hypo-osmolality and hyponatremia; D50.9 Iron deficiency anemia, unspecified; E03.9 Hypothyroidism, unspecified; E83.42 Hypomagnesemia; E86.1 Hypovolemia; E87.20 Acidosis, unspecified; E87.6 Hypokalemia; G40.909 Epilepsy, unspecified, not intractable, without status epilepticus; I10 Essential (primary) hypertension; Z86.73 Personal history of transient ischemic attack (TIA), and cerebral infarction without residual deficits; G30.9 Alzheimer's disease, unspecified; F02.80 Dementia in other diseases classified elsewhere, unspecified severity, without behavioral disturbance, psychotic disturbance, mood disturbance, and anxiety; E88.09 Other disorders of plasma-protein metabolism, not elsewhere classified; E27.8 Other specified disorders of adrenal gland; R62.7 Adult failure to thrive; Z68.24 Body mass index [BMI] 24.0-24.9, adult; N31.9 Neuromuscular dysfunction of bladder, unspecified; R91.8 Other nonspecific abnormal finding of lung field; G90.8 Other disorders of autonomic nervous system; L89.156 Pressure-induced deep tissue damage of sacral region; Z79.899 Other long term (current) drug therapy
CPT/HCPCS: 36415; 71045-TC; 80048-TC; 80076-TC; 82378; 82607-TC; 82728-TC; 82784; 83540-TC; 83605-TC; 83735-TC; 84100-TC; 84155; 84165; 84439-TC; 84443-TC; 84484-TC; 85025-TC; 85730-TC; 86334; 87040-TC; 87081-TC; A4223; G0378; J1885; J3480; J7030